=== PATIENT | female | born 1950 | race Caucasian/White ===

== ENCOUNTER 2020-05-16 07:10 | Outpatient (REF) | payer MEDICARE, SELFPAY ==
[2020-05-16 11:35] LABS: Hematocrit 43.7 % (37-47); Hemoglobin 14.7 g/dl (12.0-16.0); Mean Corpuscular HGB Conc 33.6 g/dl (31.0-35.0); Mean Corpuscular Hemoglobin 32.5 pg (27.0-33.0); Mean Corpuscular Volume 96.5 fL (80-98); Mean Platelet Volume 11.5 fL (9.4-12.3); Platelet Count 214 X10*3/uL (160-400); Red Blood Count 4.53 X10*6/uL (4.20-5.50); Red Cell Distribution Width 12.9 % (11.0-16.0); White Blood Count 4.5 X10*3/uL (4.8-10.8)
[2020-05-16 11:56] LABS: Estimated Average Glucose 108 mg/dL; Hemoglobin A1c % 5.4 %
[2020-05-16 12:10] LABS: ~HepC Num1 0.08 S/CO (0.00-0.79); ~Hepatitis C Antibody Nonreactive (Nonreactive)
[2020-05-16 12:18] LABS: Alanine Aminotransferase 13 U/L (0-31); Albumin Level 4.6 g/dL (3.5-5.0); Alkaline Phosphatase 49 U/L (39-117); Anion Gap 12 (12-20); Aspartate Amino Transferase 20 U/L (5-31); Bilirubin Total 0.7 mg/dL (0.0-1.0); Blood Urea Nitrogen 16 mg/dL (9-16); Calcium 9.4 mg/dL (8.4-10.2); Carbon Dioxide 28 mmol/L (22-29); Chloride 106 mmol/L (96-108); Cholesterol 206 mg/dL; Estimated Glomerular Filt Rate > 60; Glucose Fasting 97 mg/dL (60-99); HDL Cholesterol 79 mg/dL; LDL Cholesterol Calculated 117 mg/dl; Potassium 4.7 mmol/l (3.3-5.1); Sodium 141 mmol/L (135-145); Total Protein 6.9 g/dL (6.5-8.0); Triglycerides 51 mg/dL
== END 2020-05-16 07:11 | disposition home or self-care (01) ==
LOC: HO.HMGCLDS 07:10
PROVIDERS: PCP Internal Medicine; Visit Provider Internal Medicine
DX: I48.0 Paroxysmal atrial fibrillation (principal); R73.01 Impaired fasting glucose; E78.00 Pure hypercholesterolemia, unspecified; Z11.59 Encounter for screening for other viral diseases
CPT/HCPCS: 36415; 80053; 80061; 83036; 85027; 86803

== ENCOUNTER → 2020-05-19 15:16 | Outpatient (BNVA) | payer MEDICARE, SELFPAY | PROVIDERS: PCP Internal Medicine; Referring Provider Internal Medicine; Visit Provider Internal Medicine Cardiovascular Disease | DX: I48.92 Unspecified atrial flutter (principal); Z79.01 Long term (current) use of anticoagulants | CPT/HCPCS: 99214 ==

== ENCOUNTER → 2020-11-21 13:33 | Outpatient (BNVA) | payer MEDICARE, SELFPAY | PROVIDERS: PCP Internal Medicine; Visit Provider Internal Medicine Cardiovascular Disease | DX: I48.92 Unspecified atrial flutter (principal) | CPT/HCPCS: 93005; 99212 ==

== ENCOUNTER → 2020-12-01 08:51 | Outpatient (REF) | payer MEDICARE, SELFPAY ==
--- NOTE | 2020-12-01 11:00 | ECG_ITS ---
Hook-up date: 2020-12-01 09:03:00 Duration: 47:59:00 Test Indications: UNSPECIFIED ATRIAL FLUTTER Medications: [id number] QRS complexes 65 Ventricular ectopics which represent <1 % of total QRS comp. 624 Supraventricular ectopics which represent <1 % of total QRS comp. * Paced QRS complexs which represent % of total QRS comp. VENTRICULAR ECTOPY 63 Isolated 0 Bigeminal Cycles 1 Couplets 0 Runs 0 Beats in Runs * Beats LONGEST at * BPM at :: -- * Beats FASTEST at * BPM at :: -- SUPRAVENTRICULAR ECTOPY 366 Isolated 96 Couplets 12 Runs 66 Beats in Runs 20 Beats LONGEST at 123 BPM at 07:11:31 2020-12-02 3 Beats FASTEST at 182 BPM at 11:24:26 2020-12-02 HEART RATES 48 MIN at 05:37:55 2020-12-02 70 AVG 119 MAX at 20:45:45 2020-12-02 LONGEST RR 0.9040 secs at 22:27:25 2020-12-02 S-T LEVELS Channel 1 - 128 mm at 09:03:00 2020-12-01 - 128 mm at 09:03:00 2020-12-01 Channel 2 - 128 mm at 09:03:00 2020-12-01 - 128 mm at 09:03:00 2020-12-01 Channel 3 - 128 mm at 02:82:21 -- - 128 mm at 02:82:21 Underlying rhythm is sinus; Average ventricular rate 70/min; range 48-119/min; Occasional supraventricular ectopy; isolated beats and some brief runs, longest 20 beats at 123/min; Rare PVCs; Symptoms in diary include flutter, twinge in left breast, dizzy, palpitations. Atleast flutter/palpitations could be from PACs, but other symptoms are non-specific. Referred By: Albert Mae Overread By: INGRID CHEN
== END ==
LOC: HO.CARD 08:51
PROVIDERS: PCP Internal Medicine; Visit Provider Internal Medicine Cardiovascular Disease
DX: I48.92 Unspecified atrial flutter (principal)
CPT/HCPCS: 93226

== ENCOUNTER → 2020-12-01 10:58 | Outpatient (REF) | payer MEDICARE, SELFPAY | LOC: HO.CARD 10:58 | PROVIDERS: Visit Provider Internal Medicine Cardiovascular Disease | DX: Z13.89 Encounter for screening for other disorder (principal) ==

== ENCOUNTER → 2021-01-30 13:37 | Outpatient (BNVA) | payer MEDICARE, SELFPAY | PROVIDERS: PCP Internal Medicine; Referring Provider Internal Medicine; Visit Provider Internal Medicine Cardiovascular Disease | DX: I48.92 Unspecified atrial flutter (principal) | CPT/HCPCS: 93005; 99212 ==

== ENCOUNTER → 2021-07-31 13:10 | Outpatient (BNVA) | payer MEDICARE, SELFPAY | PROVIDERS: PCP Internal Medicine; Referring Provider Internal Medicine; Visit Provider Internal Medicine Cardiovascular Disease | DX: I48.92 Unspecified atrial flutter (principal) | CPT/HCPCS: 99212 ==

== ENCOUNTER → 2022-04-30 14:22 | Outpatient (BNVA) | payer MEDICARE, SELFPAY | PROVIDERS: PCP Internal Medicine; Referring Provider Internal Medicine; Visit Provider Internal Medicine Cardiovascular Disease | DX: I48.92 Unspecified atrial flutter (principal); R42 Dizziness and giddiness | CPT/HCPCS: 93005; 99212 ==

== ENCOUNTER → 2022-11-07 13:22 | Outpatient (BNVA) | payer MEDICARE, SELFPAY | PROVIDERS: PCP Internal Medicine; Referring Provider Internal Medicine; Visit Provider Internal Medicine Cardiovascular Disease | DX: I48.92 Unspecified atrial flutter (principal); I45.19 Other right bundle-branch block; I10 Essential (primary) hypertension; Z79.02 Long term (current) use of antithrombotics/antiplatelets | CPT/HCPCS: 93005; 99212 ==

== ENCOUNTER 2023-04-21 07:28 | Emergency (ER) | payer MEDICARE, SELFPAY ==
[2023-04-21] VITALS (16 sets, daily range): BP systolic 92–155; BP diastolic 57–104; PULSE 57–160; RESP 14–25; TEMP 36.6; O2SAT 94–99; BMI 20.1
--- NOTE | 2023-04-21 | ECG_ITS ---
Test Reason : cardioverted Blood Pressure : / mmHG Vent. Rate : 059 BPM Atrial Rate : 059 BPM P-R Int : 196 ms QRS Dur : 104 ms QT Int : 438 ms P-R-T Axes : -05 024 059 degrees QTc Int : 433 ms Sinus bradycardia with Premature supraventricular complexes Low voltage QRS Incomplete right bundle branch block Cannot rule out Anterior infarct (cited on or before 02-MAY-2020) Abnormal ECG When compared with ECG of 21-APR-2023 07:37, Sinus rhythm has replaced Atrial fibrillation Vent. rate has decreased BY [address] no longer depressed in Inferior leads Nonspecific T wave abnormality no longer evident in Inferior leads Referred By: Reji Alba Electronically Signed By:GARRETT VALVERDE
--- NOTE | 2023-04-21 07:43 | ECG_ITS ---
Test Reason : HEART PALP Blood Pressure : / mmHG Vent. Rate : 144 BPM Atrial Rate : 000 BPM P-R Int : 000 ms QRS Dur : 084 ms QT Int : 290 ms P-R-T Axes : 000 071 -09 degrees QTc Int : 449 ms Atrial fibrillation with rapid ventricular response Low voltage QRS Cannot rule out Anterior infarct (cited on or before 02-MAY-2020) Abnormal ECG When compared with ECG of 03-MAY-2020 01:52, Atrial fibrillation has replaced Sinus rhythm Vent. rate has increased BY [address] now depressed in Inferior leads Nonspecific T wave abnormality now evident in Inferior leads Referred By: Reji Alba Electronically Signed By:GARRETT VALVERDE
--- NOTE | 2023-04-21 07:46 | ED_ITS ---
HPI - Arrhythmia/Palpitations General Chief Complaint: Arrhythmia/Palpitations Stated Complaint: Afib? Time Seen by Provider: 04/21/23 07:35 Source: patient Mode of arrival: ambulatory Limitations: no limitations History of Present Illness HPI narrative: This is a very pleasant 72 years old patient presented to the emergency department complaining of palpitations since this morning. Patient has history of a flutter she is anticoagulated with apixaban. Denies any syncope any chest pain MD complaint: rapid heart beat Onset (ago): hour(s) (2) Duration: constant Severity: moderate Context: occurred during rest Arrhythmia history: other (A flutter) Associated symptoms: denies other symptoms Related Data Home Medications Medication Instructions Recorded Confirmed cholecalciferol (vitamin D3) 50 50 mcg PO DAILY 07/31/21 11/07/22 mcg (2,000 unit) capsule losartan 25 mg tablet 25 mg PO DAILY 11/07/22 11/07/22 Previous Rx's Medication Instructions Recorded apixaban 5 mg tablet 5 mg PO BID #180 tabs 02/05/22 diltiazem HCl 120 mg 120 mg PO DAILY #30 caps 04/21/23 capsule,extended release 24 hr (Cardizem CD) Allergies Allergy/AdvReac Type Severity Reaction Status Date / Time No Known Allergies* Allergy Unknown unknown Uncoded 04/21/23 07:38 Review of Systems 2 Constitutional: Constitutional: Reports no additional constitutional complaints ENT: Reports system reviewed and no additional complaints, except as documented PMFSH Past Medical History PMFSH Narrative: Atrial flutter Medical History Atrial flutter Surgical History No pertinent past surgical history Family History Family History Mother Lung cancer Father Aortic aneurysm Social History Social History Alcohol intake: current Alcohol intake frequency: 0-2 drinks per day Alcohol type: wine Patient Tobacco Use Status: Never used Tobacco Physical Exam 2 Vital Signs: Vital Signs: Last Vital Signs Temp 98 F 04/21/23 07:31 Pulse 72 04/21/23 12:43 Resp 18 04/21/23 12:43 BP 144/76 H 04/21/23 12:43 Pulse Ox 98 04/21/23 12:43 O2 Del Method Room Air 04/21/23 12:43 O2 Flow Rate 3 04/21/23 11:09 Oxygen Flow Rate 5 04/21/23 11:00 BMI result Body Mass Index 20.1 Const: Nutritional Appearance: average body habitus O rientation/consciousness: oriented to person Limitations: no limitations HEENT: Head: Yes normal to inspection Ears: hearing grossly normal bilaterally General nose exam: Normal external nose present Face and sinus: Yes normal facial exam Mouth: Normal oral and palatal mucosa present Neck: Neck: Yes normal visual inspection Chest: Chest palpation & inspection: normal inspection of the chest Resp: Effort & Inspection: normal respiratory effort Auscultation: clear to auscultation bilaterally Cardio: Jugular venous distension: no JVD Rate: regular rate Rhythm: r egular rhythm GI: Inspection: Yes normal to inspection Palpation (GI): Soft to palpation and not firm Skin: General skin exam: no rashes or lesions noted Rashes: no rashes T rauma: no lacerations or abrasions Neuro: General: oriented to person Cranial nerves: Yes CN's II-XII intact bilaterally Extrem: General: Yes normal to inspection Right lower extremity: normal to inspection Left lower extremity: normal to inspection Course Reevaluation(s) Reevaluation #1: cardiovereted to NSR I administered sedation ;products mechanical design engineer delivered the shock Time: 10:57 Reevaluation #2: Awake and alert no distress in sinus rhythm after cardioversion Time: 11:04 Medications Administered Discontinued Medications Generic Name Dose Route Start Last Admin Trade Name Sukhdeep PRN Reason Stop Dose Admin Adenosine 6 mg 04/21/23 07:50 04/21/23 08:02 Adenosine 6 Mg/2 Ml Vial IVPUSH 04/21/23 07:51 6 mg ONCE ONE Administration Diltiazem HCl 15 mg 04/21/23 07:49 04/21/23 08:05 Diltiazem Hcl 50 Mg/10 Ml Vial 0.25 mg/kg (15 mg) 04/21/23 07:50 15 mg IVPUSH Administration ONCE ONE Diltiazem HCl 125 mg/ Sodium 125 mls @ 0 mls/hr 04/21/23 08:00 04/21/23 08:44 Chloride IVCONT 15 mg/hr .Q0M GISELLE 15 mls/hr Titration Protocol Per Protocol Metoprolol Tartrate 5 mg 04/21/23 09:51 04/21/23 09:58 Metoprolol Tartrate 5 Mg/5 Ml Vial IVPUSH 04/21/23 09:52 5 mg ONCE ONE Administration Propofol 100 mg 04/21/23 10:39 04/21/23 10:47 Propofol 200 Mg/20 Ml Vial IVPUSH 04/21/23 10:40 100 mg ONCE ONE Administration Propofol 60 mg 04/21/23 11:08 04/21/23 10:50 Propofol 200 Mg/20 Ml Vial IVPUSH 04/21/23 11:09 60 mg ONCE ONE Administration Medical Decision Making Medical Decision Making [facility] Narrative: Patient presented with the palpitation found to be tachycardic in the ED. will try rate control Differential Diagnosis Differential Diagnoses: The differential diagnosis associated with the presentation includes Rapid flutter/SVT Admission/Observation Consideration of admission/observation: Escalation of care including admission/observation considered Consult Healthcare Provider Management of the patient was discussed with: Manager Floor (products mechanical design engineer Dr Bailey) Lab Data [facility] Lab Attestation statement: I reviewed the patient's lab results. 04/21/23 07:51 04/21/23 07:51 Labs: Lab Results 04/21/23 Range/Units 07:51 WBC 8.1 (4.8-10.8) X10*3/uL RBC 4.29 (4.20-5.50) X10*6/uL Hgb 14.0 (12.0-16.0) g/dl Hct 40.8 (37.0-47.0) % MCV 95.1 (80.0-98.0) fL MCH 32.6 (27.0-33.0) pg MCHC 34.3 (31.0-35.0) g/dl RDW 13.6 (11.0-16.0) % Plt Count 154 L (160-400) X10*3/uL MPV 10.8 (9.4-12.3) fL Immature Gran % (Auto) 0.4 (0.0-0.4) % Neut % (Auto) 71.3 (45-73) % Lymph % (Auto) 21.5 (20-40) % [place] % (Auto) 4.2 (2-11) % Eos % (Auto) 1.7 (0-4) % Baso % (Auto) 0.9 (0-2) % Lymph # (Auto) 1.7 (1.2-4.9) X10*3/uL [place] # (Auto) 0.3 (0.1-1.2) X10*3/uL Eos # (Auto) 0.1 (0.0-0.4) X10*3/uL Baso # (Auto) 0.1 (0.0-0.2) X10*3/uL Abs Immat Gran (auto) 0.03 (0.00-0.03) X10*3/uL Absolute Neuts (auto) 5.8 (2.0-8.3) x10*3/uL Absolute Nucleated RBC 0.000 (0.0-0.012) X10*3/uL Nucleated RBC % (auto) 0.0 (0.0-0.2) /100WBC Sodium 140 (135-145) mmol/L Potassium 3.7 (3.3-5.1) mmol/L Chloride 108 (96-108) mmol/L Carbon Dioxide 24 (22-29) mmol/L Anion Gap 12 (12-20) BUN 13 (9-16) mg/dL Creatinine 0.67 (0.5-1.4) mg/dL Estim Creat Clear Calc 74.0 Estimated GFR > 60 Random Glucose 104 (60-115) mg/dL Calcium 9.3 (8.4-10.2) mg/dL Total Bilirubin 0.4 (0.0-1.0) mg/dL AST 35 H (5-31) U/L ALT 22 (0-31) U/L Alkaline Phosphatase 54 (39-117) U/L Troponin I High Sens 2.8 (<3.5-17.0) ng/L Total Protein 6.6 (6.5-8.0) g/dL Albumin 4.2 (3.5-5.0) g/dL Independent Interpretation I performed an independent interpretation of an: EKG Interpretation: Narrow complex tachycardia question is SVT [place] rapid flutter External Record Review External record reviewed: Inpatient record Procedures Procedural Sedation Indication: other (cardioversion) ASA Class: I Mallampati Class: I Preparation: patient monitor applied, pulse oximeter, capnometry used, supplemental O2 applied, suction/airway equipment at bedside and IV secured IV Propofol dose (mg): 160 Patient Tolerated Procedure: well Complications: none Critical Care Time Critical Care Time Critical Care Time: Yes Total Critical Care Time: 90 Attestation: IV cardizem/IV cardizem drip ,IV lopressor,procedural sedation Discharge Plan Discharge Clinical Impression: Atrial flutter with rapid ventricular response Patient Disposition: Home, Self-Care Instructions: Atrial Flutter (ED) Prescriptions: New diltiazem HCl [Cardizem CD] 120 mg capsule,extended release 24hr 120 mg PO DAILY Qty: 30 0RF No Action apixaban 5 mg tablet 5 mg PO BID Qty: 180 3RF cholecalciferol (vitamin D3) 50 mcg (2,000 unit) capsule 50 mcg PO DAILY losartan 25 mg tablet 25 mg PO DAILY Referrals: Darian Bailey MD [Physician] - 3 days Interventions: ED Discharge Assessment Last Done: 04/21/23 12:44 Discharge Date/Time: 04/21/23 12:44
[2023-04-21 07:59] LABS: MANUAL DIFF FLAG NO
[2023-04-21] MEDS: Adenosine 6 MG/2 ML VIAL IVPUSH (08:02)
[2023-04-21 08:03] LABS: Basophils Absolute Auto 0.1 X10*3/uL (0.0-0.2); Basophils Percent Auto 0.9 % (0-2); Eosinophils Absolute Auto 0.1 X10*3/uL (0.0-0.4); Eosinophils Percent Auto 1.7 % (0-4); Hematocrit 40.8 % (37.0-47.0); Imm Gran Abs Auto 0.03 X10*3/uL (0.00-0.03); Imm Gran Pct Auto 0.4 % (0.0-0.4); Lymphocytes Absolute Auto 1.7 X10*3/uL (1.2-4.9); Lymphocytes Percent Auto 21.5 % (20-40); Mean Corpuscular HGB Conc 34.3 g/dl (31.0-35.0); Mean Corpuscular Hemoglobin 32.6 pg (27.0-33.0); Mean Corpuscular Volume 95.1 fL (80.0-98.0); Mean Platelet Volume 10.8 fL (9.4-12.3); Monocytes Absolute Auto 0.3 X10*3/uL (0.1-1.2); Monocytes Percent Auto 4.2 % (2-11); Neutrophils Absolute Auto 5.8 x10*3/uL (2.0-8.3); Neutrophils Percent Auto 71.3 % (45-73); Platelet Count 154 X10*3/uL (160-400); Red Blood Count 4.29 X10*6/uL (4.20-5.50); Red Cell Distribution Width 13.6 % (11.0-16.0); White Blood Count 8.1 X10*3/uL (4.8-10.8)
[2023-04-21] MEDS: dilTIAZem HCL 50 MG/10 ML VIAL 15 MG IVPUSH (08:05)
[2023-04-21] MEDS: dilTIAZem HCL 125 MG in 0.9 % Sodium Chloride 100 ML 10 MG IVCONT (08:11)
[2023-04-21 08:25] LABS: Alanine Aminotransferase 22 U/L (0-31); Albumin Level 4.2 g/dL (3.5-5.0); Alkaline Phosphatase 54 U/L (39-117); Anion Gap 12 (12-20); Aspartate Amino Transferase 35 U/L (5-31); Bilirubin Total 0.4 mg/dL (0.0-1.0); Blood Urea Nitrogen 13 mg/dL (9-16); Calcium 9.3 mg/dL (8.4-10.2); Carbon Dioxide 24 mmol/L (22-29); Chloride 108 mmol/L (96-108); Estimated Glomerular Filt Rate > 60; Glucose Random 104 mg/dL (60-115); Potassium 3.7 mmol/L (3.3-5.1); Sodium 140 mmol/L (135-145); Total Protein 6.6 g/dL (6.5-8.0)
[2023-04-21 08:33] LABS: Troponin-I High Sensitivity 2.8 ng/L (<3.5-17.0)
[2023-04-21] MEDS: Metoprolol Tartrate 5 MG/5 ML VIAL IVPUSH (09:58)
--- NOTE | 2023-04-21 10:13 | PC.NURSE ---
0745 - pt arrival states feels like shes in afib again; onset approx 0500 upon awaking. pt axox4; vss; rapid afib on monitor 140-150 bpm; ekg obtained iv established labs drawn. pt denies n/v/cp/sob/dizziness. 0800- 144 bpm 0802 - 6mg adenosine administered with Dr. Alba at bedside; zoll at bedside; no improvement in heart rate. pt tolerated well. 0805- 15mg diltiazem administered with some improvement in heart rate; 111 bpm. vss. 0811- diltiazem drip started at 10 mg/hr per order. vss as documented. 0845- diltiazem drip titrated to 15mg/hr; 151 bpm 131/85. second iv established. 0958 - metoprolol administered per order as no improvement in heart rate; 138 bpm 136/79 1010 - rapid afib/aflutter on monitor 95-102 bpm.
--- NOTE | 2023-04-21 10:46 | PC.NURSE ---
Dr. Alba and Textile Science Technician at bedside. Respiratory at bedside. VSS. rapid afib on montior 144 bpm. pacer pads on; pt on zoll. 1047- 40mg propofol 1048 - 20mg propofol 1048 - 20mg propofol 1049 - 20mg propofol 1050- 20mg propofol 1051- 20 mg propofol 1053- 20mg propofol 1053- 1L normal saline infusing. 1053 charged; shocked 200J. 1054- nsr on monitor 65 bpm.
[2023-04-21] MEDS: propofoL 200 MG/20 ML VIAL 100 MG IVPUSH (10:47)
[2023-04-21] MEDS: propofoL 200 MG/20 ML VIAL 60 MG IVPUSH (10:50)
--- NOTE | 2023-04-21 11:11 | PC.NURSE ---
pt axox4, vss, respirations even and unlabored, pt reports still feeling sleepy but able to awaken on own; able to recall events prior to sedation; asking appropriate questions. sats 97% on 2L NC.
--- NOTE | 2023-04-21 11:42 | HO.CARDIVERS ---
Cardioversion Procedure Note Cardioversion Date of Procedure: Today Ordering Provider: Myself Performing Provider: Myself Indication for Procedure: Symptomatic recurrent persistent atrial flutter Pre-Op Diagnosis: Same Post-Op Diagnosis: Normal sinus rhythm Performed with Transesophageal Echo: No Consent: Verbal and Written consent was obtained from the patient before starting the procedure and after confirming the use of oral anticoagulation. The patient was made aware of the risk of synchronized cardioversion including alternatives and benefits Procedure: After consent obtained, cardioversion pads were attached anteroposterior configuration and the patient was sedated by the ED team. Once adequate sedation achieved, patient was delivered 200 joules of biphasic synchronized energy in anteroposterior configuration Complications: None Impression: Normal sinus rhythm Recommendations: 1. Twelve lead EKG 2. Start Cardizem CD 1 20 mg daily 3. Continue full oral anticoagulation with Eliquis 4. Outpatient follow-up after Holter monitor
--- NOTE | 2023-04-21 11:47 | P.CONCA_ITS ---
History of Present Illness History of Present Illness Date of Service: 04/21/23 Requesting physician: Reji Alba Consult reason: other (Recurrent atrial flutter) Chief complaint: Afib? Narrative: I was consulted to see Jasmin in cardiology consultation today for recurrent symptomatic atrial flutter in the emergency room. She is a pleasant 72-year-old female with prior history of paroxysmal atrial fibrillation follows with . The 1st episode was about 2 years ago when she was admitted to the hospital and converted with rate control with IV medication. Since then she has been on Eliquis 5 mg b.i.d.. She was initially started metoprolol but did not tolerated with symptoms of dizziness and not feeling well. Subsequently treated with losartan which was also stopped due to lightheadedness. She does carry a prior diagnosis of hypertension but her blood pressures been well controlled. She was in her usual state of health yesterday when she went to bed. She woke up this morning at 05:00 o'clock to the go to the bathroom and developed rapid palpitations. She came to the emergency room and was noted in rapid heart rate, initially given additional seen by ED. Noted to be in atrial flutter with rapid ventricular response. Subsequently started on Cardizem drip and remain in atrial flutter. I symptoms have improved. Discussed about treatment options and subsequently we went on to perform synchronized cardioversion Review of Systems 2 Constitutional: Constitutional: Reports no additional constitutional complaints Eyes: Eyes: Reports no additional eye complaints Cardiovascular: Cardiovascular: Denies chest pain, Reports lightheadedness, Denies Loss of Consciousness, Reports palpitations and Denies dyspnea Respiratory: Respiratory: Denies no additional respiratory complaints and Denies dyspnea Genitourinary: Genitourinary: Reports no additional female genitourinary complaints Musculoskeletal: Musculoskeletal: Reports no additional musculoskeletal complaints Integumentary/Breasts: Skin/Breast: Reports system reviewed and no additional complaints, except as docu Psychiatric: Psychiatric: Reports no additional psychiatric complaints Endocrine: Endocrine: Reports palpitations Hematologic/Lymphatic: Hematologic/Lymphatic: Reports no additional hematologic/lymphatic complaints Allergic/Immunologic: Allergic/Immunologic: Reports no additional allergic/immunologic complaints PMFSH Past Medical History Medical History Atrial flutter Family History Family History Mother Lung cancer Father Aortic aneurysm Surgical History Surgical History No pertinent past surgical history Social History Social History Alcohol intake: current Alcohol intake frequency: 0-2 drinks per day Alcohol type: wine Patient Tobacco Use Status: Never used Tobacco Smoked in Last 30 Days: No Use of substances other than those prescribed or required for medical reasons: No Advance Directives: No Meds Allergies Allergy/AdvReac Type Severity Reaction Status Date / Time No Known Allergies* Allergy Unknown unknown Uncoded 04/21/23 07:38 Active Medications: Current Medications Diltiazem HCl 125 mg/ Sodium (Chloride) 125 mls @ 0 mls/hr IVCONT .Q0M GISELLE; Protocol Last Titration: 04/21/23 08:44 Dose: 15 mg/hr, 15 mls/hr Home Medications Medication Instructions Recorded Confirmed Last Taken Type cholecalciferol (vitamin D3) 50 50 mcg PO DAILY 07/31/21 11/07/22 Unknown History mcg (2,000 unit) capsule losartan 25 mg tablet 25 mg PO DAILY 11/07/22 11/07/22 Unknown History Physical Exam 2 Vital Signs: Vital Signs: Last Vital Signs Temp 98 F 04/21/23 07:31 Pulse 66 04/21/23 11:25 Resp 14 04/21/23 11:25 BP 114/70 04/21/23 11:25 Pulse Ox 98 04/21/23 11:25 O2 Del Method Room Air 04/21/23 11:25 O2 Flow Rate 3 04/21/23 11:09 Oxygen Flow Rate 5 04/21/23 11:00 BMI result Body Mass Index 20.1 Const: General: cooperative, comfortable, no acute distress, alert, awake, Physically active and anxious Nutritional Appearance: thin O rientation/consciousness: patient oriented x3 Limitations: no limitations HEENT: Head: Yes normocephalic and Yes atraumatic Neck: Neck: Yes trachea midline, Yes supple and Yes no JVD Resp: Effort & Inspection: normal respiratory effort Auscultation: clear to auscultation bilaterally Cardio: Rate: regular rate Rhythm: regular rhythm Heart sounds: S1 normal heart sound present, S2 normal heart sound present, no click, no gallops, no murmurs and no rubs GI: Auscultation: normal bowel sounds Skin: General skin exam: no rashes or lesions noted Neuro: General: patient oriented x3 and no focal motor deficits Extrem: General: Yes no clubbing, cyanosis or edema Objective Labs and Meds 04/21/23 07:51 04/21/23 07:51 Lab results: Laboratory Results - last 24 hr 04/21/23 07:51 WBC 8.1 RBC 4.29 Hgb 14.0 Hct 40.8 MCV 95.1 MCH 32.6 MCHC 34.3 RDW 13.6 Plt Count 154 L MPV 10.8 Immature Gran % (Auto) 0.4 Neut % (Auto) 71.3 Lymph % (Auto) 21.5 [place] % (Auto) 4.2 Eos % (Auto) 1.7 Baso % (Auto) 0.9 Lymph # (Auto) 1.7 [place] # (Auto) 0.3 Eos # (Auto) 0.1 Baso # (Auto) 0.1 Abs Immat Gran (auto) 0.03 Absolute Neuts (auto) 5.8 Absolute Nucleated RBC 0.000 Nucleated RBC % (auto) 0.0 Sodium 140 Potassium 3.7 Chloride 108 Carbon Dioxide 24 Anion Gap 12 BUN 13 Creatinine 0.67 Estim Creat Clear Calc 74.0 Estimated GFR > 60 Random Glucose 104 Calcium 9.3 Total Bilirubin 0.4 AST 35 H ALT 22 Alkaline Phosphatase 54 Troponin I High Sens 2.8 Total Protein 6.6 Albumin 4.2 Assessment and Plan (1) Atrial flutter with rapid ventricular response: Status: Acute Recurrent symptomatic atrial flutter with rapid ventricular response in this elderly woman. Converted with synchronized cardioversion. Will start on Cardizem CD 120 mg daily and discharged home. Continue Eliquis for oral anticoagulation. Avoidance of stimulants such as caffeine alcohol was discussed. Follow up in the office after Holter monitor. Will repeat echocardiogram in near future as well to assess any changes in her structural status. Advised to monitor blood pressure at home and maintain a log. We discussed treatment options if she has recurrent atrial flutter fibrillation including with antiarrhythmic drug and ablation. She understood and agree. Will follow up as outpatient. Thank you for allowing us to partake in her care Time Spent With Patient Time: Total time managing care of this patient today ____ minutes. Procedures Date of Service Date of Service: 04/21/23
== END 2023-04-21 12:44 | disposition home or self-care (01) ==
PROVIDERS: Emergency Provider Emergency Medicine; PCP Internal Medicine
DX: I48.92 Unspecified atrial flutter (principal); I49.9 Cardiac arrhythmia, unspecified; Z79.01 Long term (current) use of anticoagulants; Z79.899 Other long term (current) drug therapy
CPT/HCPCS: 36415; 80053; 84484; 85025; 93005; 96365; 96375; 96376; 99284; 99285; J0153

== ENCOUNTER → 2023-04-21 07:55 | Outpatient (BNV) | payer MEDICARE, SELFPAY | PROVIDERS: Emergency Provider Emergency Medicine; PCP Internal Medicine; Visit Provider Internal Medicine Cardiovascular Disease | DX: I48.92 Unspecified atrial flutter (principal) | CPT/HCPCS: 92960; 99284 ==

== ENCOUNTER 2023-05-06 13:02 | Outpatient (AMB) | payer MEDICARE, SELFPAY ==
--- NOTE | 2023-05-06 13:04 | MHC.OFFVIS ---
Intake Vital Signs 05/06/23 13:05 Height 5 ft 8 in Weight 130 lb 1.164 oz BMI 19.8 BP 142/108 H Blood Pressure Location Lt brachial Position Sitting Pulse 85 Intake Visit Reasons: 6 mth f/up/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 She was seen previously for atrial flutter. She has been on Eliquis. Denying any symptoms. Previously was noted to have high BP but was under a lot of stress so medications were not added. It appears on follow up with her PCP her BP was still high and she was started on Losartan which she has been tolerating well. No bleeding concerns. 05/06/23: She returns for follow-up appeared she did well for 3 years and recently went to emergency department with palpitations and was in atrial flutter again. She was cardioverted and discharged home on diltiazem 120 mg twice a day. She was already taking apixaban 5 mg twice a day. She returns for follow-up and has been doing okay. No further palpitations. She is drinking 2 glasses of wine per day. We discussed about alcohol intake and risk of arrhythmia. [facility] Medical History Atrial flutter Surgical History No pertinent past surgical history Family History Mother Lung cancer Father Aortic aneurysm Social History Alcohol intake: current Alcohol intake frequency: 0-2 drinks per day Alcohol type: wine Patient Tobacco Use Status: Never used Tobacco Review of Systems Const Denies weakness ENT Denies dizziness Card Denies chest pain, Denies chest pain with activity, Denies syncope, Denies rapid heart rate, Denies pedal edema, Denies edema, Denies leg edema, Denies lightheadedness, Denies palpitations, Denies dyspnea, Denies dyspnea on exertion and Denies orthopnea Resp Denies cough, Denies dyspnea and Denies dyspnea on exertion GI Denies hematochezia and Denies change in stool character Musc Denies abnormal gait, Denies muscle cramps, Denies muscle weakness, Denies numbness, Denies radiating pain into limb and Denies tingling Neuro Denies abnormal gait, Denies dizziness, Denies syncope, Denies numbness, Denies tingling and Denies weakness Endo Denies palpitations Physical Exam Vital Signs: Last Vital Signs Pulse 85 05/06/23 13:05 BP 142/108 H 05/06/23 13:05 BMI result Body Mass Index 19.8 GENERAL APPEARANCE: in no acute distress, pleasant. NECK: no carotid bruit, no jugular venous distention. SKIN: no suspicious lesions, warm and dry. HEART: no murmurs, regular rate and rhythm. LUNGS: clear to auscultation bilaterally. ABDOMEN: soft, nontender. EXTREMITIES: no edema. PERIPHERAL PULSES: equal. NEUROLOGIC: No gross deficits, AAO X 3 Assessment & Plan Assessment & Plan (1) Essential hypertension: Code(s): I10 - Essential (primary) hypertension (2) Atrial flutter: Code(s): I48.92 - Unspecified atrial flutter Plan Pleasant 72-year-old female who is here for follow-up. She has history of atrial flutter and was stable for 3 years till in April 21 when she presented to emergency department with atrial flutter. She was cardioverted and discharged back home. She has been taking diltiazem 120 mg twice a day and apixaban 5 mg twice a day. She is also on buspirone and there is apparently an interaction between diltiazem and buspirone. I have advised her to discuss her primary care physician and may be the dose of buspirone should be decreased. We discussed about ablation versus antiarrhythmic therapy versus watchful waiting. She has decided not to pursue any procedures or try antiarrhythmics at this point. Will leave her on diltiazem and monitor closely. If she has recurrent episodes and will discuss about starting antiarrhythmic therapy versus atrial flutter ablation. Blood pressure is elevated in the clinic but her home blood pressure readings are fine. She is saying that she gets very anxious when she comes to them office visits. Currently continue the same dose of diltiazem. Thank you for allowing me to participate in the care of your patient. Please feel free to contact me if you have any questions. Coding Level of Care Code Est Pt Level 4 (91065) Diagnoses Essential hypertension I10 Atrial flutter I48.92
[2023-05-06 13:05] VITALS: BP 142/108; PULSE 85; BMI 19.8
== END 2023-05-06 13:38 | disposition home or self-care (01) ==
PROVIDERS: PCP Internal Medicine; Visit Provider Internal Medicine Cardiovascular Disease
DX: I10 Essential (primary) hypertension (principal); I48.92 Unspecified atrial flutter
CPT/HCPCS: 99214

== ENCOUNTER → 2023-05-06 13:02 | Outpatient (BNVA) | payer MEDICARE, SELFPAY | PROVIDERS: PCP Internal Medicine; Visit Provider Internal Medicine Cardiovascular Disease | DX: I48.92 Unspecified atrial flutter (principal); I10 Essential (primary) hypertension | CPT/HCPCS: 99212 ==

== ENCOUNTER → 2023-05-17 08:54 | Outpatient (REF) | payer MEDICARE, SELFPAY ==
--- NOTE | 2023-05-17 08:58 | HM_ITS ---
* Total monitoring time 3 days. * Underlying rhythm is sinus. Average ventricular rate 68/min. Range 48 to 114/min. * Occasional supraventricular ectopy with low burden. Very brief runs noted. * Occasional ventricular ectopy with a burden of 0.9%. Rare couplets and bigeminy. No significant runs. * No significant pauses or AV blocks. * Palpitations and lightheadedness in diary correlates with sinus rhythm, PACs. MTDD
== END ==
LOC: HO.CARD 08:54
PROVIDERS: PCP Internal Medicine; Visit Provider Internal Medicine Cardiovascular Disease
DX: I10 Essential (primary) hypertension (principal); I48.92 Unspecified atrial flutter; R42 Dizziness and giddiness
CPT/HCPCS: 93242; 93306

== ENCOUNTER → 2023-05-17 08:58 | Outpatient (BNV) | payer MEDICARE, SELFPAY | PROVIDERS: PCP Internal Medicine; Visit Provider Internal Medicine | DX: I47.10 Supraventricular tachycardia, unspecified (principal) | CPT/HCPCS: 93244; 93306 ==

== ENCOUNTER 2023-08-19 08:35 | Outpatient (REF) | payer MEDICARE, SELFPAY ==
[2023-08-19 14:55] LABS: Vitamin B12 716 pg/mL (200-900)
== END 2023-08-19 08:36 | disposition home or self-care (01) ==
LOC: HO.LAB 08:35
PROVIDERS: PCP Nurse Practitioner Family; Visit Provider Nurse Practitioner Family
DX: I10 Essential (primary) hypertension (principal); R73.01 Impaired fasting glucose; G62.9 Polyneuropathy, unspecified
CPT/HCPCS: 36415; 80053; 80061; 82607; 83036; 85025

== ENCOUNTER 2023-09-10 08:18 | Outpatient (AMB) | payer MEDICARE, SELFPAY ==
--- NOTE | 2023-09-10 08:27 | A.OFFVIS_ITS ---
Intake Vital Signs 09/10/23 08:28 Height 5 ft 8 in Weight 133 lb 9.602 oz BMI 20.3 BP 120/72 Blood Pressure Location Lt brachial Position Sitting Pulse 65 Pulse Source Monitor Intake Visit Reasons: 4mnth f/up [employer] Required: No Allergies No Known Allergies* Allergy (Unknown, Uncoded 05/06/23 13:07) unknown Medication List - Last Reconciled 09/10/23 by CITLALLI Noonan apixaban 5 mg PO BID buspirone 5 mg PO BID cholecalciferol (vitamin D3) 50 mcg PO DAILY diltiazem HCl 120 mg PO DAILY HPI 4mnth f/up HPI Details Jasmin is a 72-year-old female past medical history of hypertension, atrial flutter requiring cardioversion 04/21/2023 then put on diltiazem, continued on Eliquis who recently had a Holter monitor and echocardiogram and now presents for follow-up. Today she reports that she has been feeling well since her last ER visit in April. She has not had any known recurrent atrial flutter. She denies any chest discomfort at rest or with activity. No heart palpitations, lightheadedness, presyncope, syncope. No shortness of breath, PND, orthopnea or edema. She reports good activity tolerance. She continues to drink 2 glasses of wine most days. She is taking meds as directed. No bleeding issues reported. [facility] Medical History Atrial flutter Surgical History No pertinent past surgical history Family History Mother Lung cancer Father Aortic aneurysm Social History Alcohol intake: current Alcohol intake frequency: 0-2 drinks per day Alcohol type: wine Patient Tobacco Use Status: Never used Tobacco Review of Systems Const All systems reviewed & are unremarkable except as noted in HPI and below ENT Denies dizziness Card Denies chest pain, Denies chest pain at rest, Denies chest pain with activity, Denies rapid heart rate, Denies pedal edema, Denies edema, Denies leg edema, Denies lightheadedness, Denies palpitations, Denies dyspnea, Denies dyspnea on exertion and Denies orthopnea Resp Denies cough, Denies dyspnea and Denies dyspnea on exertion GI Denies hematochezia and Denies change in stool character Musc Denies abnormal gait, Denies limited range of motion, Denies muscle cramps, Denies muscle weakness, Denies numbness, Denies radiating pain into limb, Denies stiffness and Denies tingling Neuro Denies abnormal gait, Denies dizziness, Denies numbness and Denies tingling Endo Denies palpitations Physical Exam Vital Signs: Last Vital Signs Pulse 65 09/10/23 08:28 BP 120/72 09/10/23 08:28 BMI result Body Mass Index 20.3 Const General: cooperative, healthy appearing, comfortable and no acute distress Orientation/consciousness: patient oriented x3 Neck Neck: Yes normal visual inspection and Yes no JVD Resp Effort & Inspection: normal respiratory effort Auscultation: clear to auscultation bilaterally, no rales, no rhonchi and no wheezes Cardio Jugular venous distension: no JVD Rate: regular rate Rhythm: regular rhythm Heart sounds: S1 normal heart sound present, S2 normal heart sound present, no gallops, no murmurs and no rubs Peripheral pulses: Peripheral pulses 2+ throughout Neuro General: patient oriented x3 Extrem General: Yes normal to inspection, No no pedal edema and No calf tenderness Psych Appearance: grossly normal Mental Status: mental status grossly normal Speech and movement: Normal speech and movement present Office Procedures EKG Details: Today, read by me, normal sinus rhythm, poor R-wave progression which could be related to body habitus, lead placement, can not exclude prior anterior infarct, rate 65, QTC 440 milliseconds [id number], Complete Assessment & Plan Assessment & Plan (1) Atrial flutter: Code(s): I48.92 - Unspecified atrial flutter Qualifiers: Atrial flutter type: unspecified Qualified Code(s): I48.92 - Unspecified atrial flutter Plan: History of atrial flutter. Had been suppressed for a few years then recently presented to [facility] emergency room with palpitations. She did undergo cardioversion at that time, 04/21/2023. She was put on diltiazem for heart rate control. She was continued on Eliquis 5 mg b.i.d.. Echocardiogram done 05/17/2023 showed EF 67%, mild anterior and posterior mitral valve thickening. Holter monitor done 05/17/2023 for 3 days showed sinus rhythm with average heart rate 68, heart rate range 48 to 114, occasional SVE and VE, palpitations correlated with sinus rhythm and PACs. Today she reports no recurrent heart palpitations. EKG done today showing normal sinus rhythm, low-voltage QRS, unchanged from prior EKG, rate 65. She continues to drink up to 2 glasses a wine daily. Alcohol use and its correlation with atrial fibrillation reviewed with her. Will have her continue on diltiazem CD 120 mg daily. Continue Eliquis 5 mg b.i.d.. Labs done 08/19/2023 showed creatinine 0.71. Emergency care for any known recurrent atrial fibrillation that is symptomatic. Cardiology follow-up in 6 months, sooner if needed. (2) Essential hypertension: Code(s): I10 - Essential (primary) hypertension Plan: Normal range at this time. Continue on current diltiazem. In the past had been on losartan and tells me that she got very lightheaded with it. Plan Time spent on chart review, documentation, interview and assessment Coding Level of Care Code Est Pt Level 3 (87048) Diagnoses Atrial flutter, unspecified type I48.92 Atrial flutter type: unspecified Essential hypertension I10 CPT Codes EKG - CPT: 30581-[id number], Complete ([id number]) Time Spent (min) 24
[2023-09-10 08:28] VITALS: BP 120/72; PULSE 65; BMI 20.3
== END 2023-09-10 08:59 | disposition home or self-care (01) ==
PROVIDERS: PCP Internal Medicine; Visit Provider Nurse Practitioner Family
DX: I48.92 Unspecified atrial flutter (principal); I10 Essential (primary) hypertension
CPT/HCPCS: 93010; 99213

== ENCOUNTER → 2023-09-10 08:18 | Outpatient (BNVA) | payer MEDICARE, SELFPAY | PROVIDERS: PCP Internal Medicine; Visit Provider Nurse Practitioner Family | DX: I48.92 Unspecified atrial flutter (principal); I10 Essential (primary) hypertension; Z79.01 Long term (current) use of anticoagulants; Z79.899 Other long term (current) drug therapy | CPT/HCPCS: 93005; 99212 ==

== ENCOUNTER 2024-01-24 07:58 | Outpatient (REF) | payer MEDICARE, SELFPAY ==
--- NOTE | ~2024-01-24 | MM_ITS ---
EXAMINATION: BONE DENSITOMETRY CLINICAL INDICATION: Osteopenia. COMPARISON: This is the patient's baseline examination. TECHNIQUE: Using a [employer] DXA System (software version: 13.1) manufactured by [employer], dual-energy x-ray absorptiometry was performed of the lumbar spine and left hip. The images are of good technical quality. Summary results are attached. FINDINGS: LEFT FEMUR, NECK: BMD 0.742 g/cm2, Z-score -0.3, T-score -2.1, osteopenia. LEFT FEMUR, TOTAL: BMD 0.723 g/cm2, Z-score -0.6, T-score -2.3, osteopenia. AP SPINE L1-L4: BMD 1.080 g/cm2, Z-score 1.0, T-score -0.8, normal. IDENTIFIED RISK FACTORS: Menopause, secondary osteoporosis (intestinal or bowel disease, not IBS). HISTORY OF FRACTURE: None listed. MEDICATIONS: Vitamin D. MM/XR DEXA axial skeleton IMPRESSION: 1. DIAGNOSIS: Osteopenia based on the lowest T-score value of -2.3 in the total femur applying World Health Organization criteria. 2. 10-YEAR FRACTURE RISK PREDICTION, FRAX: Major osteoporotic fracture (clinical spine, forearm, hip or shoulder) 11.5%. Hip fracture 2.7%. 3. Treatment Recommendations: NOF guidelines recommend consideration for treatment in postmenopausal women and men age 50 and older presenting with the following: -A hip or vertebral (clinical or morphometric) fracture. -T-score less than or equal to -2.5 at the femoral neck or spine after appropriate evaluation to exclude secondary causes. -Low bone mass at the hip or spine and a 10-year fracture probability by FRAX of greater than or equal to 3% for hip fracture or greater than or equal to 20% for major osteoporotic fracture based on the [place] adapted WHO algorithm. 4. Other Recommendations: All treatment decisions require clinical judgment and consideration of individual patient factors, including patient preferences, comorbidities, previous drug use, risk factors not captured in the FRAX model (e.g. frailty, falls, vitamin D deficiency, increased bone turnover, interval significant decline in bone density) and possible under or overestimation of fracture risk by FRAX. Additional medical evaluation for secondary cause of low bone mineral density may be appropriate. FUTURE SCAN RECOMMENDATION: People with diagnosed cases of osteoporosis or at high risk for fracture should have regular bone mineral density tests. For patients eligible for Medicare, routine testing is allowed once every 2 years. The testing frequency can be increased to one year for patients who have rapidly progressing disease, those who are receiving or discontinuing medical therapy to restore bone mass, or have additional risk factors.
== END 2024-01-24 07:59 | disposition home or self-care (01) ==
LOC: HO.MAMMO 07:58
PROVIDERS: PCP Internal Medicine; Visit Provider Internal Medicine
DX: Z13.820 Encounter for screening for osteoporosis (principal); M85.80 Other specified disorders of bone density and structure, unspecified site; Z78.0 Asymptomatic menopausal state
CPT/HCPCS: 77080

== ENCOUNTER 2024-02-02 07:34 | Inpatient (IN) | payer MEDICARE, SELFPAY ==
[2024-02-02] VITALS (15 sets, daily range): BP systolic 104–140; BP diastolic 64–99; PULSE 69–152; RESP 12–22; TEMP 36.6–36.7; O2SAT 94–98; BMI 21.3
--- NOTE | 2024-02-02 07:37 | ECG_ITS ---
Test Reason : A FIB Blood Pressure : / mmHG Vent. Rate : 155 BPM Atrial Rate : 000 BPM P-R Int : 000 ms QRS Dur : 078 ms QT Int : 286 ms P-R-T Axes : 000 094 055 degrees QTc Int : 459 ms Supraventricular tachycardia Rightward axis Pulmonary disease pattern Septal infarct (cited on or before 02-MAY-2020) Abnormal ECG When compared with ECG of 21-APR-2023 10:57, Premature supraventricular complexes are no longer Present Vent. rate has increased BY 96 BPM Incomplete right bundle branch block is no longer Present Questionable change in initial forces of Anteroseptal leads Referred By: Generic ED Physician Electronically Signed By:RUDDY LOPEZ MD
[2024-02-02] MEDS: Adenosine 6 MG/2 ML VIAL IVPUSH (07:59)
[2024-02-02] MEDS: Adenosine 6 MG/2 ML VIAL 12 MG IVPUSH (07:59)
[2024-02-02] MEDS: 0.9 % Sodium Chloride 1,000 ML 999 ML IV ×2 (08:00→10:06)
--- NOTE | 2024-02-02 08:03 | ED_ITS ---
HPI - Arrhythmia/Palpitations General Chief Complaint: Arrhythmia/Palpitations Stated Complaint: AFIB? Time Seen by Provider: 02/02/24 07:49 Source: patient Mode of arrival: ambulatory Limitations: no limitations History of Present Illness ED Provider: DR. Juan HPI narrative: 73-year-old female history of paroxysmal atrial fibrillation on diltiazem 120 mg twice a day and Eliquis patient required cardioversion in the past, woke up this morning with feeling palpitation fast heart rate, no chest pain or shortness of breath feeling slightly dizzy. Patient in the emergency room found to be in rapid heart rate of 155, EKG is revealing SVT at 155, patient was given adenosine 6 mg followed by 12 mg with a transient effect the patient is back to rapid AFib. Patient declined any aggravating factor, attended a senior care constitution party last night admitted to drinking wine last night. Related Data Home Medications ?Medication ?Instructions ?Recorded ?Confirmed cholecalciferol (vitamin D3) 50 50 mcg PO DAILY 07/31/21 02/02/24 mcg (2,000 unit) capsule cyanocobalamin (vitamin B-12) 250 500 mcg PO DAILY 02/02/24 02/02/24 mcg tablet Previous Rx's ?Medication ?Instructions ?Recorded apixaban 5 mg tablet 5 mg PO BID #180 tabs 02/05/22 diltiazem HCl 120 mg 120 mg PO DAILY #90 caps 09/13/23 capsule,extended release 24 hr Allergies Allergy/AdvReac Type Severity Reaction Status Date / Time No Known Allergies Allergy Verified 02/02/24 07:39 Review of Systems 2 Review of Systems: All other systems are reviewed and are negative Constitutional: Reports as per HPI and Reports no additional constitutional complaints Eyes: Reports as per HPI and Reports no additional eye complaints Reports system reviewed and no additional complaints, except as documented Cardiovascular: Reports as per HPI and Reports no additional cardiovascular complaints Respiratory: Reports as per HPI and Reports no additional respiratory complaints Gastrointestinal: Reports as per HPI and Reports no additional gastrointestinal complaints Genitourinary: Reports no additional female genitourinary complaints Musculoskeletal: Reports no additional musculoskeletal complaints Skin/Breast: Reports system reviewed and no additional complaints, except as docu Psychiatric: Reports no additional psychiatric complaints Endocrine: Reports no additional endocrine complaints Hematologic/Lymphatic: Reports no additional hematologic/lymphatic complaints Allergic/Immunologic: Reports no additional allergic/immunologic complaints Reports system reviewed and no additional complaints, except as documented and Reports Abnormal speech present [facility] Past Medical History Medical History Atrial flutter Surgical History No pertinent past surgical history Family History Family History Mother Lung cancer Father Aortic aneurysm Social History Social History Alcohol intake: current Alcohol intake frequency: a few times a week Alcohol type: wine Patient Tobacco Use Status: Never used Tobacco Smoked in Last 30 Days: No Use of substances other than those prescribed or required for medical reasons: No Advance Directives: No Advance Directives Information Provided: Yes Nutrition Risks: No Nutritional Risk Physical Exam 2 Vital Signs: Vital Signs: Last Vital Signs Temp 98.0 F 02/02/24 07:39 Pulse 145 H 02/02/24 09:44 Resp 22 H 02/02/24 09:44 BP 117/91 H 02/02/24 09:44 Pulse Ox 96 02/02/24 09:44 O2 Del Method Room Air 02/02/24 09:44 BMI result Body Mass Index 21.3 Vital signs have been reviewed and appear to be correct. Blood pressure elevated. Heart rate elevated. Respiratory rate normal. Temperature normal. Oxygen saturation normal. Appearance: Alert. Oriented X3. No acute distress. Head: Normal external exam. Normocephalic. Atraumatic. No Blanchard signs noted. No raccoon eyes noted Eyes: PERRLA. EOMI. Conjunctiva and sclera normal. Eyelids normal. ENT: TM's Normal. Pharynx normal. Uvula midline. Moist mucous membranes. No trismus noted. No drooling noted. No muffled voice noted. Neck: Normal inspection. Neck supple. FROM. No adenopathy. Thyroid Normal. No meningeal signs. No neck mass noted. CVS: Rapid atrial fibrillation, Heart sound normal. No murmurs noted. Pulses normal throughout. Respiratory: No respiratory distress. Painless inspiration. Breath sounds normal. No wheezes/rales/rhonchi noted. Chest nontender. No accessory muscle usage noted or decreased air movement noted. Abdomen: Soft and nontender. Bowel sounds normal in all 4 quadrants. No distention noted. No organomegaly noted. No visible injury noted. Back: No CVA tenderness. Full range of motion noted. Skin: Skin warm and dry. Normal skin color. Normal skin turgor. No rashes/lesions/lacerations noted. Extremities: No lower extremity edema. Extremities exhibit normal range of motion. Extremities nontender. Neuro: Oriented X 3. Cranial nerve exam: II-XII are grossly intact No motor deficit. No sensory deficit. Reflexes normal. Course Reevaluation(s) Reevaluation #1: 73-year-old female history of paroxysmal AFib required cardioversion in the past came in with rapid atrial fibrillation versus SVT. 1. Initial adenosine 6 followed by 12 mg IV was unsuccessful to slow the heart rate. 2. Cardizem 20 mg IV able to control the rate. 3. Patient is already on anticoagulation. Will admit for further monitoring and cardiac evaluation. Time: 08:54 Reevaluation #2: Patient is back to rapid atrial fibrillation with RVR will repeat Cardizem IV and start the patient on Cardizem drip. Time: 09:57 Medications Administered Discontinued Medications Generic Name Dose Route Start Last Admin Trade Name Freq PRN Reason Stop Dose Admin Adenosine 6 mg 02/02/24 07:49 02/02/24 07:59 Adenosine 6 Mg/2 Ml Vial IVPUSH 02/02/24 07:50 6 mg STAT STA Administration Adenosine 12 mg 02/02/24 07:49 02/02/24 07:59 Adenosine 6 Mg/2 Ml Vial IVPUSH 02/02/24 07:50 12 mg ONCE ONE Administration Diltiazem HCl 20 mg 02/02/24 08:02 02/02/24 08:06 Diltiazem Hcl 50 Mg/10 Ml Vial IVPUSH 02/02/24 08:03 20 mg STAT STA Administration Sodium Chloride 1,000 mls @ 999 mls/hr 02/02/24 07:50 02/02/24 09:03 Ns IV 02/02/24 08:50 Infused .Q1H1M ONE Infusion Medical Decision Making Differential Diagnosis Differential Diagnoses: The differential diagnosis associated with the presentation includes (SVT, AFib, dysrhythmia, ventricular dysrhythmia, electrolyte derangement severe anemia.) Admission/Observation Consideration of admission/observation: Escalation of care including admission/observation considered Consult Healthcare Provider Management of the patient was discussed with: Hospitalist (Dr. choe) Lab Data MDM Lab Attestation statement: I reviewed the patient's lab results. 02/02/24 07:58 02/02/24 07:58 Labs: Lab Results 02/02/24 Range/Units 07:58 WBC 6.7 (4.8-10.8) X10*3/uL RBC 4.41 (4.20-5.50) X10*6/uL Hgb 14.4 (12.0-16.0) g/dl Hct 42.0 (37.0-47.0) % MCV 95.2 (80.0-98.0) fL MCH 32.7 (27.0-33.0) pg MCHC 34.3 (31.0-35.0) g/dl RDW 13.2 (11.0-16.0) % Plt Count 176 (160-400) X10*3/uL MPV 10.3 (9.4-12.3) fL Immature Gran % (Auto) 0.1 (0.0-0.4) % Neut % (Auto) 61.6 (45-73) % Lymph % (Auto) 30.6 (20-40) % [place] % (Auto) 5.4 (2-11) % Eos % (Auto) 1.3 (0-4) % Baso % (Auto) 1.0 (0-2) % Lymph # (Auto) 2.1 (1.2-4.9) X10*3/uL [place] # (Auto) 0.4 (0.1-1.2) X10*3/uL Eos # (Auto) 0.1 (0.0-0.4) X10*3/uL Baso # (Auto) 0.1 (0.0-0.2) X10*3/uL Abs Immat Gran (auto) 0.01 (0.00-0.03) X10*3/uL Absolute Neuts (auto) 4.1 (2.0-8.3) x10*3/uL Absolute Nucleated RBC 0.000 (0.0-0.012) X10*3/uL Nucleated RBC % (auto) 0.0 (0.0-0.2) /100WBC Hold Purple Top SEE NOTE Hold Blue Top SEE NOTE Sodium 140 (135-145) mmol/L Potassium 3.7 (3.3-5.1) mmol/L Chloride 107 (96-108) mmol/L Carbon Dioxide 21 L (22-29) mmol/L Anion Gap 16 (12-20) BUN 8 L (9-16) mg/dL Creatinine 0.73 (0.5-1.4) mg/dL Estim Creat Clear Calc 70.8 Estimated GFR > 60 Random Glucose 181 H (60-115) mg/dL Calcium 9.7 (8.4-10.2) mg/dL Total Bilirubin 0.8 (0.0-1.0) mg/dL AST 32 H (5-31) U/L ALT 21 (0-31) U/L Alkaline Phosphatase 51 (39-117) U/L Troponin I High Sens 4.7 D (<3.5-17.0) ng/L Total Protein 6.9 (6.5-8.0) g/dL Albumin 4.4 (3.5-5.0) g/dL Independent Interpretation I performed an independent interpretation of an: EKG (SVT at 155 b.p.m.) Radiology Impression Discussion of test interpretation with radiology: I have reviewed the radiologist's reading. Critical Care Time Critical Care Time Critical Care Time: Yes Total Critical Care Time: 40 Attestation: The patient was critically ill with a high probability of imminent or life- threatening deterioration. I spent greater than 30 minutes of discontinuous time evaluating the patient, delivering critical care at the bedside, discussing evaluating data with consultants. Critical care time does not include time spent performing separately billable procedures or teaching. Time spent performing critical care was 40 minutes. Discharge Plan Discharge Clinical Impression: Atrial flutter Qualifiers: Atrial flutter type: unspecified Qualified Code(s): I48.92 - Unspecified atrial flutter Patient Disposition: Admitted As Inpatient
[2024-02-02 08:04] LABS: MANUAL DIFF FLAG NO
[2024-02-02 08:05] LABS: Basophils Absolute Auto 0.1 X10*3/uL (0.0-0.2); Eosinophils Absolute Auto 0.1 X10*3/uL (0.0-0.4); Eosinophils Percent Auto 1.3 % (0-4); Hemoglobin 14.4 g/dl (12.0-16.0); Imm Gran Abs Auto 0.01 X10*3/uL (0.00-0.03); Imm Gran Pct Auto 0.1 % (0.0-0.4); Lymphocytes Absolute Auto 2.1 X10*3/uL (1.2-4.9); Lymphocytes Percent Auto 30.6 % (20-40); Mean Corpuscular HGB Conc 34.3 g/dl (31.0-35.0); Mean Corpuscular Hemoglobin 32.7 pg (27.0-33.0); Mean Corpuscular Volume 95.2 fL (80.0-98.0); Mean Platelet Volume 10.3 fL (9.4-12.3); Monocytes Absolute Auto 0.4 X10*3/uL (0.1-1.2); Monocytes Percent Auto 5.4 % (2-11); Neutrophils Absolute Auto 4.1 x10*3/uL (2.0-8.3); Neutrophils Percent Auto 61.6 % (45-73); Platelet Count 176 X10*3/uL (160-400); Red Blood Count 4.41 X10*6/uL (4.20-5.50); Red Cell Distribution Width 13.2 % (11.0-16.0); White Blood Count 6.7 X10*3/uL (4.8-10.8)
[2024-02-02] MEDS: dilTIAZem HCL 50 MG/10 ML VIAL 20 MG IVPUSH ×2 (08:06→10:02)
[2024-02-02 08:23] LABS: Alanine Aminotransferase 21 U/L (0-31); Albumin Level 4.4 g/dL (3.5-5.0); Alkaline Phosphatase 51 U/L (39-117); Anion Gap 16 (12-20); Aspartate Amino Transferase 32 U/L (5-31); Bilirubin Total 0.8 mg/dL (0.0-1.0); Blood Urea Nitrogen 8 mg/dL (9-16); Calcium 9.7 mg/dL (8.4-10.2); Carbon Dioxide 21 mmol/L (22-29); Chloride 107 mmol/L (96-108); Creatinine Clr Calc Pharmacy 70.8; Estimated Glomerular Filt Rate > 60; Glucose Random 181 mg/dL (60-115); Potassium 3.7 mmol/L (3.3-5.1); Sodium 140 mmol/L (135-145); Total Protein 6.9 g/dL (6.5-8.0)
[2024-02-02 08:30] LABS: Troponin-I High Sensitivity 4.7 ng/L (<3.5-17.0)
--- NOTE | 2024-02-02 08:35 | ECG_ITS ---
Test Reason : AFIB Blood Pressure : / mmHG Vent. Rate : 112 BPM Atrial Rate : 000 BPM P-R Int : 000 ms QRS Dur : 084 ms QT Int : 344 ms P-R-T Axes : 000 084 044 degrees QTc Int : 469 ms Atrial fibrillation with rapid ventricular response Low voltage QRS Cannot rule out Anterior infarct (cited on or before 02-MAY-2020) Abnormal ECG When compared with ECG of 02-FEB-2024 07:37, Atrial fibrillation has replaced Sinus rhythm Non-specific change in ST segment in Inferior leads ST no longer depressed in Lateral leads Nonspecific T wave abnormality has replaced inverted T waves in Inferior leads Referred By: Sami Juan Electronically Signed By:RUDDY LOPEZ MD
--- NOTE | 2024-02-02 09:39 | P.HPHOSP_ITS ---
History of Present Illness Date of Service: 02/02/24 Attending physician on admission: Norberto Conner Chief Complaint: palpitations 73 year old female with history of paroxysmal atrial fibrillation/flutter s/p successful cardioversion 04/2023 and htn presented to the ED fro evaluation of palpitations and chest tightness that started around 4am this morning. Does report drinking 2 glasses of wine last night. Reports drinking 2 glasses of wine about every other night. No other substance use or cigarette smoking. Denies recent illness. No fevers, chills, abd pain, n/v/d, urinary symptoms, lightheadedness, syncope, sob, or chest pressure. Does report a chronic dry cough. Has been compliant with medications. Since arrival, has been tachycardic to 144, initially in SVT, given 1 L IV NS, 12 mg adenosine and then 6mg adenosine converted into afib rvr. Vitals otherwise stable. She did then receive 20mg IV cardizem but is now back in the 140's on exam. Hematology studies unremarkable. Renal fx and lytes normal. Glucose 181. Trop 4.7. EKG shows afib rvr 112, non specific ST changes. Discussed with ED provider and pt will be started on cardizem drip. Review of Systems 2 Review of Systems: General: No fevers, malaise, unintentional weight loss HEENT: No blurred vision, diplopia. No sore throat, nasal congestion, rhinorrhea, sinus pain, ear pain Cardiovascular: +palpitations. No chest pain or leg edema Respiratory: No shortness of breath, wheezing, cough GI: No abdominal pain, nausea, vomiting, diarrhea, constipation, melena, hematochezia : No dysuria, hematuria, increased urinary frequency, decreased urinary output MSK: No myalgia, back pain Neuro: No headaches, weakness, paresthesias Skin: No rashes or lesions [facility] Medical History Atrial flutter Family History Mother Lung cancer Father Aortic aneurysm Surgical History No pertinent past surgical history Social History Alcohol intake: current Alcohol intake frequency: a few times a week Alcohol type: wine Patient Tobacco Use Status: Never used Tobacco Smoked in Last 30 Days: No Use of substances other than those prescribed or required for medical reasons: No Advance Directives: No Advance Directives Information Provided: Yes Nutrition Risks: No Nutritional Risk Meds Allergies Allergy/AdvReac Type Severity Reaction Status Date / Time No Known Allergies Allergy Verified 02/02/24 07:39 Active Medications: Current Medications Acetaminophen (Acetaminophen 325 Mg Tablet) 650 mg PO Q6H PRN PRN Reason: Pain, Mild (Pain Scale 1-3), fever or headache Calcium Carbonate (Calcium Carbonate 750 Mg Tab.Chew) 750 mg PO Q4H PRN PRN Reason: Heartburn Magnesium Hydroxide (Milk Of Magnesia 30 Ml Oral.Susp) 30 ml PO DAILY PRN PRN Reason: Constipation Melatonin (Melatonin 3 Mg Tablet) 6 mg PO BEDTIME PRN PRN Reason: Insomnia Sodium Chloride (0.9 % Sodium Chloride Flush 3 Ml Syringe) [facility] Medications ?Medication ?Instructions ?Recorded ?Confirmed ?Last Taken ?Type cholecalciferol (vitamin D3) 50 50 mcg PO DAILY 07/31/21 02/02/24 02/01/24 History mcg (2,000 unit) capsule cyanocobalamin (vitamin B-12) 250 500 mcg PO DAILY 02/02/24 02/02/24 02/01/24 History mcg tablet Physical Exam 2 Vital Signs and Narrative: Vital Signs: Last Vital Signs Temp 98.0 F 02/02/24 07:39 Pulse 91 02/02/24 08:14 Resp 12 02/02/24 08:14 BP 104/73 02/02/24 08:14 Pulse Ox 96 02/02/24 08:14 O2 Del Method Room Air 02/02/24 08:14 BMI result Body Mass Index 21.3 Constitutional - Awake and Alert, No apparent distress Eyes - PERRLA, EOMI Cardiovascular - S1S2, irregularly irregular tachycardic, No edema Respiratory - Normal lung expansion, Normal respiratory effort, No respiratory distress, CTA bilaterally Gastrointestinal - NT / ND; +BS; No rebound or guarding Extremities - no calf tenderness bilaterally, no swelling Skin - Warm/Dry Neurological - Alert & oriented x3 Psychological - Appropriate affect Results Labs 02/02/24 07:58 02/02/24 07:58 Labs: Laboratory Results - last 24 hr 02/02/24 07:58 MCV 95.2 MCH 32.7 MCHC 34.3 RDW 13.2 Plt Count 176 MPV 10.3 Immature Gran % (Auto) 0.1 Neut % (Auto) 61.6 Lymph % (Auto) 30.6 [place] % (Auto) 5.4 Eos % (Auto) 1.3 Baso % (Auto) 1.0 Lymph # (Auto) 2.1 [place] # (Auto) 0.4 Eos # (Auto) 0.1 Baso # (Auto) 0.1 Abs Immat Gran (auto) 0.01 Absolute Neuts (auto) 4.1 Absolute Nucleated RBC 0.000 Nucleated RBC % (auto) 0.0 Hold Purple Top SEE NOTE Hold Blue Top SEE NOTE Anion Gap 16 Estim Creat Clear Calc 70.8 Estimated GFR > 60 Random Glucose 181 H Calcium 9.7 Total Bilirubin 0.8 AST 32 H ALT 21 Alkaline Phosphatase 51 Troponin I High Sens 4.7 D Total Protein 6.9 Albumin 4.4 Assessment and Plan (1) Atrial fibrillation with RVR: Status: Acute Plan 73 year old female with history of paroxysmal atrial fibrillation/flutter s/p successful cardioversion 04/2023 and htn admitted for further management of afib rvr. #Paroxysmal atrial fibrillation with rvr -?precipitated by alcohol consumption last night. ?SVT vs afib on initial ekg -h/o successful cardizem drip 05/04 -received 20mg iv cardizem still in 140s. Initiate cardizem drip per protocol -continue eliquis for AC -cardiac diet -cardiology consult -monitor on tele #HTN -hold po cardizem. continue drip as above dvt prophylaxis- eliquis full code pt requires inpt stay at least 2 midnights for management of afib rvr on cardizem drip and requiring close cardiac monitoring and expert consultation Quality Stroke Does the patient have a stroke diagnosis?: No VTE Prior VTE?: No VTE Risk Level:: Medical - moderate - high VTE Device Contraindication: Treatment Not Indicated VTE Drug Contraindication: N/A - Med Ordered
[2024-02-02] MEDS: dilTIAZem HCL 125 MG in 0.9 % Sodium Chloride 100 ML 10 MG IVCONT (10:11)
[2024-02-02 12:08] LABS: Magnesium 1.8 mg/dL (1.6-2.6)
--- NOTE | 2024-02-02 12:31 | P.CONCA_ITS ---
History of Present Illness History of Present Illness Date of Service: 02/02/24 Requesting physician: Norberto Conner Chief complaint: AFIB rvr Narrative: 73-year-old lady who is here for atrial flutter. She has known history of atrial flutter in the past. Was on Eliquis and Cardizem. She said she started having palpitations last night. She said she was at a [employer] but did not drink more than usual. He usually drinks 2 glasses of wine every other day. Taking Eliquis regularly and has not missed any doses. She is in atrial flutter with heart rates in 140s currently on Cardizem drip 15 milligram/hour. No bleeding concerns. No other symptoms. [facility] Past Medical History Medical History Atrial flutter Family History Family History Mother Lung cancer Father Aortic aneurysm Surgical History Surgical History No pertinent past surgical history Social History Social History Alcohol intake: current Alcohol intake frequency: a few times a week Alcohol type: wine Patient Tobacco Use Status: Never used Tobacco Smoked in Last 30 Days: No Use of substances other than those prescribed or required for medical reasons: No Advance Directives: No Advance Directives Information Provided: Yes Nutrition Risks: No Nutritional Risk Meds Allergies Allergy/AdvReac Type Severity Reaction Status Date / Time No Known Allergies Allergy Verified 02/02/24 07:39 Active Medications: Current Medications Acetaminophen (Acetaminophen 325 Mg Tablet) 650 mg PO Q6H PRN PRN Reason: Pain, Mild (Pain Scale 1-3), fever or headache Apixaban (Apixaban 5 Mg Tablet) 5 mg PO BID GISELLE Calcium Carbonate (Calcium Carbonate 750 Mg Tab.Chew) 750 mg PO Q4H PRN PRN Reason: Heartburn Cyanocobalamin (Cyanocobalamin (Vitamin B-12) 500 Mcg Tablet) 500 mcg PO DAILY GISELLE Diltiazem HCl 125 mg/ Sodium (Chloride) 125 mls @ 0 mls/hr IVCONT .Q0M GISELLE; Protocol Last Titration: 02/02/24 10:30 Dose: 15 mg/hr, 15 mls/hr Magnesium Hydroxide (Milk Of Magnesia 30 Ml Oral.Susp) 30 ml PO DAILY PRN PRN Reason: Constipation Melatonin (Melatonin 3 Mg Tablet) 6 mg PO BEDTIME PRN PRN Reason: Insomnia Metoprolol Tartrate (Metoprolol Tartrate 5 Mg/5 Ml Vial) 5 mg IVPUSH Q6H PRN; Protocol PRN Reason: Heart Rate >100 Metoprolol Tartrate (Metoprolol Tartrate 25 Mg Tablet) 25 mg PO QID [facility]; Protocol Sodium Chloride (0.9 % Sodium Chloride Flush 3 Ml Syringe) 3 ml IVFLUSH QSHIFT [facility] Vitamin D (Cholecalciferol (Vitamin D3) 25 Mcg Tablet) 50 mcg PO DAILY [facility] Home Medications ?Medication ?Instructions ?Recorded ?Confirmed ?Last Taken ?Type cholecalciferol (vitamin D3) 50 50 mcg PO DAILY 07/31/21 02/02/24 02/01/24 History mcg (2,000 unit) capsule cyanocobalamin (vitamin B-12) 250 500 mcg PO DAILY 02/02/24 02/02/24 02/01/24 History mcg tablet Physical Exam 2 Vital Signs: Vital Signs: Last Vital Signs Temp 98.0 F 02/02/24 07:39 Pulse 125 H 02/02/24 10:28 Resp 15 02/02/24 10:28 BP 122/99 H 02/02/24 10:28 Pulse Ox 96 02/02/24 10:28 O2 Del Method Room Air 02/02/24 10:28 BMI result Body Mass Index 21.3 GENERAL APPEARANCE: in no acute distress, pleasant. NECK: no carotid bruit, no jugular venous distention. SKIN: no suspicious lesions, warm and dry. HEART: no murmurs, regular tachycardic. LUNGS: clear to auscultation bilaterally. ABDOMEN: soft, nontender. EXTREMITIES: no edema. PERIPHERAL PULSES: equal. NEUROLOGIC: No gross deficits, AAO X 3 Objective Labs and Meds 02/02/24 07:58 02/02/24 07:58 Lab results: Laboratory Results - last 24 hr 02/02/24 07:58 WBC 6.7 RBC 4.41 Hgb 14.4 Hct 42.0 MCV 95.2 MCH 32.7 MCHC 34.3 RDW 13.2 Plt Count 176 MPV 10.3 Immature Gran % (Auto) 0.1 Neut % (Auto) 61.6 Lymph % (Auto) 30.6 [place] % (Auto) 5.4 Eos % (Auto) 1.3 Baso % (Auto) 1.0 Lymph # (Auto) 2.1 [place] # (Auto) 0.4 Eos # (Auto) 0.1 Baso # (Auto) 0.1 Abs Immat Gran (auto) 0.01 Absolute Neuts (auto) 4.1 Absolute Nucleated RBC 0.000 Nucleated RBC % (auto) 0.0 Hold Purple Top SEE NOTE Hold Blue Top SEE NOTE Sodium 140 Potassium 3.7 Chloride 107 Carbon Dioxide 21 L Anion Gap 16 BUN 8 L Creatinine 0.73 Estim Creat Clear Calc 70.8 Estimated GFR > 60 Random Glucose 181 H Calcium 9.7 Magnesium 1.8 Total Bilirubin 0.8 AST 32 H ALT 21 Alkaline Phosphatase 51 Troponin I High Sens 4.7 D Total Protein 6.9 Albumin 4.4 Assessment and Plan (1) Atrial flutter: Qualifiers: Atrial flutter type: unspecified Qualified Code(s): I48.92 - Unspecified atrial flutter Status: Acute Plan Pleasant 73 year female who is presenting with palpitations and atrial flutter. She has known history of atrial flutter previously. On apixaban 5 mg twice a day. Continue Cardizem drip and add metoprolol p.o.. Keep NPO after midnight for potential cardioversion tomorrow. She should get Eliquis b.i.d. and no doses should be missed. Would start her on Multaq 400 mg twice a day after cardioversion. I have discussed with her about ablation and we will discuss this further as outpatient. Thank you for allowing me to participate in the care of your patient. Please feel free to contact me if you have any questions. Procedures Date of Service Date of Service: 02/02/24
--- NOTE | 2024-02-02 12:49 | PC.NURSE ---
per pt she had an adverse reaction to metoprolol in the past and had to discontinue the med, informed MD lee of this
[2024-02-02] MEDS: 0.9 % Sodium Chloride Flush 3 ML SYRINGE IVFLUSH ×2 (15:35→22:02)
[2024-02-02] MEDS: dilTIAZem HCL 30 MG TABLET PO ×3 (15:36→22:01)
[2024-02-02] MEDS: Acetaminophen 325 MG TABLET 650 MG PO (15:37)
--- NOTE | 2024-02-02 17:59 | PC.NURSE ---
PT arrived from ED after PO dose of cardizem given. Cardizem gtt off per MD and patient transported without gtt running. HR 100-110 Aflutter on tele upon arrival. Pt A+Ox4, ambulated with steady gait. Will continue order of PO Cardizem QID.
[2024-02-02] MEDS: Apixaban 5 MG TABLET PO (21:59)
[2024-02-03] VITALS: BP 143/95; PULSE 90; RESP 18; TEMP 36.8; O2SAT 97
--- NOTE | 2024-02-03 01:33 | ECG_ITS ---
Test Reason : Check to see if patient has converted. Blood Pressure : / mmHG Vent. Rate : 054 BPM Atrial Rate : 054 BPM P-R Int : 198 ms QRS Dur : 094 ms QT Int : 468 ms P-R-T Axes : 034 050 067 degrees QTc Int : 443 ms Sinus bradycardia Low voltage QRS Cannot rule out Anterior infarct (cited on or before 02-MAY-2020) Abnormal ECG When compared with ECG of 02-FEB-2024 08:39, Sinus rhythm has replaced Atrial fibrillation Vent. rate has decreased BY 58 BPM Referred By: Kota Gutierrez Electronically Signed By:RUDDY LOPEZ MD
[2024-02-03 04:00] VITALS: BP 125/74; PULSE 60; RESP 18; TEMP 36.7; O2SAT 99
[2024-02-03 06:46] LABS: MANUAL DIFF FLAG NO
[2024-02-03 06:52] LABS: Basophils Absolute Auto 0.1 X10*3/uL (0.0-0.2); Basophils Percent Auto 1.1 % (0-2); Eosinophils Absolute Auto 0.1 X10*3/uL (0.0-0.4); Eosinophils Percent Auto 2.1 % (0-4); Hematocrit 40.9 % (37.0-47.0); Hemoglobin 13.6 g/dl (12.0-16.0); Imm Gran Abs Auto 0.01 X10*3/uL (0.00-0.03); Imm Gran Pct Auto 0.2 % (0.0-0.4); Lymphocytes Absolute Auto 2.3 X10*3/uL (1.2-4.9); Lymphocytes Percent Auto 44.3 % (20-40); Mean Corpuscular HGB Conc 33.3 g/dl (31.0-35.0); Mean Corpuscular Hemoglobin 32.6 pg (27.0-33.0); Mean Corpuscular Volume 98.1 fL (80.0-98.0); Mean Platelet Volume 10.6 fL (9.4-12.3); Monocytes Absolute Auto 0.3 X10*3/uL (0.1-1.2); Monocytes Percent Auto 5.1 % (2-11); Neutrophils Absolute Auto 2.5 x10*3/uL (2.0-8.3); Neutrophils Percent Auto 47.2 % (45-73); Platelet Count 167 X10*3/uL (160-400); Red Blood Count 4.17 X10*6/uL (4.20-5.50); Red Cell Distribution Width 13.5 % (11.0-16.0); White Blood Count 5.3 X10*3/uL (4.8-10.8)
[2024-02-03 07:14] LABS: Anion Gap 11 (12-20); Blood Urea Nitrogen 13 mg/dL (9-16); Calcium 8.9 mg/dL (8.4-10.2); Carbon Dioxide 24 mmol/L (22-29); Chloride 109 mmol/L (96-108); Creatinine Clr Calc Pharmacy 74.9; Estimated Glomerular Filt Rate > 60; Glucose Random 108 mg/dL (60-115); Potassium 3.3 mmol/L (3.3-5.1); Sodium 141 mmol/L (135-145)
[2024-02-03 08:00] VITALS: BP 138/85; PULSE 67; RESP 18; TEMP 36.7; O2SAT 98
[2024-02-03] MEDS: Cyanocobalamin (Vitamin B-12) 500 MCG TABLET PO (08:56)
[2024-02-03] MEDS: Cholecalciferol (Vitamin D3) 25 MCG TABLET 50 MCG PO (08:56)
[2024-02-03] MEDS: Apixaban 5 MG TABLET PO (08:56)
[2024-02-03] MEDS: dilTIAZem HCL 30 MG TABLET PO (08:56)
[2024-02-03] MEDS: 0.9 % Sodium Chloride Flush 3 ML SYRINGE IVFLUSH (08:58)
--- NOTE | 2024-02-03 09:35 | MHC.CM.PN ---
IMM 02/03/24, Pt lives with spouse, is independent, no home health services, to transport home at DC. Pt. has HCP, will provide copy. CM to follow for DC needs.
--- NOTE | 2024-02-03 10:27 | PM.DS ---
DS: Providers Provider Date of Service: 02/03/24 Date of admission: 02/02/24 09:36 Primary care physician: Rolando Velázquez MD Consults: 02/02/24 09:38 Consult to Cardiology Routine Consulting Provider: [facility] Reason for consultation: afib rvr DS: Diagnosis Discharge Diagnosis (1) Atrial fibrillation with RVR: Status: Acute DS: Summary Hospital Course Hospital Course: admission hpi palpitations 73 year old female with history of paroxysmal atrial fibrillation/flutter s/p successful cardioversion 04/2023 and htn presented to the ED fro evaluation of palpitations and chest tightness that started around 4am this morning. Does report drinking 2 glasses of wine last night. Reports drinking 2 glasses of wine about every other night. No other substance use or cigarette smoking. Denies recent illness. No fevers, chills, abd pain, n/v/d, urinary symptoms, lightheadedness, syncope, sob, or chest pressure. Does report a chronic dry cough. Has been compliant with medications. Since arrival, has been tachycardic to 144, initially in SVT, given 1 L IV NS, 12 mg adenosine and then 6mg adenosine converted into afib rvr. Vitals otherwise stable. She did then receive 20mg IV cardizem but is now back in the 140's on exam. Hematology studies unremarkable. Renal fx and lytes normal. Glucose 181. Trop 4.7. EKG shows afib rvr 112, non specific ST changes. Discussed with ED provider and pt will be started on cardizem drip. Hospital course: This patient, known to have AFIB/flutter and a history of cardioversion, presented with palpitations and was found to be in AFIB with RVR. IV cardizem was started for heart rate control, successfully converting her back to sinus rhythm. The production control analyst recommended discontinuing cardizem and starting Multaq 400 mg twice daily in an attempt to maintain sinus rhythm. To continue Eliquis for stroke prevention Time Attestation Discharge Coordination Time (in mins): 35 Quality: Safe Use of Opioids Does Pt have an Active Cancer Diagnosis on the Problem List?: No Quality: Stroke Does the patient have a stroke diagnosis?: No Physical Exam Vital Signs: Vital Signs: Last Vital Signs Temp 98.0 F 02/03/24 08:00 Pulse 67 02/03/24 08:00 Resp 18 02/03/24 08:00 BP 138/85 02/03/24 08:00 Pulse Ox 98 02/03/24 08:00 O2 Del Method Room Air 02/03/24 08:00 O2 Flow Rate 97 02/02/24 16:00 BMI result Body Mass Index 21.3 General: AO X 3, no acute distress Resp: CTA bilateral CVS: S1,S2,RRR GI: +BS, NT, no distention Skin: No rash Neuro: motor grossly intact Psych: appropriate affect DS: Data Data Completed and Pending Labs on day of discharge: Laboratory Results - last 24 hr 02/02/24 02/03/24 07:58 06:23 WBC 5.3 RBC 4.17 L Hgb 13.6 Hct 40.9 MCV 98.1 H MCH 32.6 MCHC 33.3 RDW 13.5 Plt Count 167 MPV 10.6 Immature Gran % (Auto) 0.2 Neut % (Auto) 47.2 Lymph % (Auto) 44.3 H [place] % (Auto) 5.1 Eos % (Auto) 2.1 Baso % (Auto) 1.1 Lymph # (Auto) 2.3 [place] # (Auto) 0.3 Eos # (Auto) 0.1 Baso # (Auto) 0.1 Abs Immat Gran (auto) 0.01 Absolute Neuts (auto) 2.5 Absolute Nucleated RBC 0.000 Nucleated RBC % (auto) 0.0 Sodium 141 Potassium 3.3 Chloride 109 H Carbon Dioxide 24 Anion Gap 11 L BUN 13 Creatinine 0.69 Estim Creat Clear Calc 74.9 Estimated GFR > 60 Random Glucose 108 Calcium 8.9 D Magnesium 1.8 Discharge Plan Discharge Anticipated Discharge Date/Time: 02/03/24 10:17 Patient Disposition: Home, Self-Care Discharge Diagnosis: Aflutter Referrals: Rolando Velázquez MD [Primary Care Provider] - 1 Week Discharge Medications: New Multaq 400 mg Tablet 400 mg PO BID Qty: 180 0RF Continued apixaban 5 mg tablet 5 mg PO BID Qty: 180 3RF cyanocobalamin (vitamin B-12) 250 mcg Tablet 500 mcg PO DAILY cholecalciferol (vitamin D3) 50 mcg (2,000 unit) capsule 50 mcg PO DAILY Discontinued diltiazem HCl 120 mg capsule,extended release 24hr 120 mg PO DAILY Qty: 90 3RF Discharge Orders: Discharge Order (Routine); Ordered 02/03/24 Ordered By: Kota Gutierrez Diet: Advance to usual diet Activity on Discharge: As tolerated Stand Alone Forms: Patient Portal Discharge page Print Language: [place]i Care Plan Goals: Control of atrial fibrillation and prevent stroke Health Concerns: atrial fibrilation Plan of Treatment: take Multaq as recommended, stop taking cardiazem... Continue all other medication Assessment: see above
[2024-02-03] MEDS: Dronedarone HCl 400 MG TABLET PO (10:38)
--- NOTE | 2024-02-03 10:40 | MHC.CM.PN ---
Pt has been medically cleared for DC, her will pick her up, DCP: home, self care.
--- NOTE | 2024-02-03 12:28 | P.PNCA_ITS ---
Subjective Subjective Date of Service: 02/03/24 Principal diagnosis: Paroxysmal atrial fibrillation Interval history: Patient converted overnight to sinus rhythm. Feeling quite well. Hemodynamically stable. Heart rate in the 60s. No heart failure symptoms. Review of Systems Review of Systems Yes all other systems are reviewed and are negative Physical Exam Vital Signs: Last Vital Signs Temp 98.0 F 02/03/24 08:00 Pulse 67 02/03/24 08:00 Resp 18 02/03/24 08:00 BP 138/85 02/03/24 08:00 Pulse Ox 98 02/03/24 08:00 O2 Del Method Room Air 02/03/24 08:00 O2 Flow Rate 97 02/02/24 16:00 BMI result Body Mass Index 21.3 GENERAL APPEARANCE: in no acute distress, pleasant. NECK: no carotid bruit, no jugular venous distention. SKIN: no suspicious lesions, warm and dry. HEART: no murmurs, regular and normal rate. LUNGS: clear to auscultation bilaterally. ABDOMEN: soft, nontender. EXTREMITIES: no edema. PERIPHERAL PULSES: equal. NEUROLOGIC: No gross deficits, AAO X 3 Objective Labs and Meds 02/03/24 06:23 02/03/24 06:23 Lab results: Laboratory Results - last 24 hr 02/03/24 06:23 WBC 5.3 RBC 4.17 L Hgb 13.6 Hct 40.9 MCV 98.1 H MCH 32.6 MCHC 33.3 RDW 13.5 Plt Count 167 MPV 10.6 Immature Gran % (Auto) 0.2 Neut % (Auto) 47.2 Lymph % (Auto) 44.3 H [place] % (Auto) 5.1 Eos % (Auto) 2.1 Baso % (Auto) 1.1 Lymph # (Auto) 2.3 [place] # (Auto) 0.3 Eos # (Auto) 0.1 Baso # (Auto) 0.1 Abs Immat Gran (auto) 0.01 Absolute Neuts (auto) 2.5 Absolute Nucleated RBC 0.000 Nucleated RBC % (auto) 0.0 Sodium 141 Potassium 3.3 Chloride 109 H Carbon Dioxide 24 Anion Gap 11 L BUN 13 Creatinine 0.69 Estim Creat Clear Calc 74.9 Estimated GFR > 60 Random Glucose 108 Calcium 8.9 D Progress Note: A&P Assessment and plan (1) Atrial fibrillation with RVR: Status: Acute Assessment and Plan: Highly symptomatic paroxysmal atrial flutter/fibrillation converted spontaneously with rate control. At this point time will switch her to Multaq 400 mg b.i.d. and discontinue Cardizem therapy. Continue full oral anticoagulation Eliquis. Advised to monitor blood pressure at home and may need to switch antihypertensive therapy to amlodipine as outpatient. Refer to EPS by Dr. Mae. Will set up for follow-up after Holter monitor. Thank you for allowing me to partake in the care Time Spent With Patient Time: Total time managing care of this patient today ____ minutes. Progress Note: Quality Stroke Does the patient have a stroke diagnosis?: No Procedures Date of Service Date of Service: 02/03/24
== END 2024-02-03 11:11 | disposition home or self-care (01) | DRG 310 ==
LOC: HO.ED 09:02 → HO.EDOVER 09:40 → HO.IMC 16:03
PROVIDERS: Student in an Organized Health Care Education/Training Program; Admitting Provider Physician Assistant; Emergency Provider Emergency Medicine; PCP Internal Medicine; Visit Provider Internal Medicine
DX: I48.92 Unspecified atrial flutter (principal); I48.0 Paroxysmal atrial fibrillation; I10 Essential (primary) hypertension; Z79.01 Long term (current) use of anticoagulants; Z79.899 Other long term (current) drug therapy
CPT/HCPCS: 36415; 80048; 80053; 83735; 84484; 85025; 93005; 99285; J0153; Q9957

== ENCOUNTER 2024-02-02 09:36 | Outpatient (BNV) | payer MEDICARE, SELFPAY | END 2024-02-03 01:33 | PROVIDERS: Admitting Provider Physician Assistant; Emergency Provider Emergency Medicine; PCP Internal Medicine; Visit Provider Internal Medicine Cardiovascular Disease | DX: R00.1 Bradycardia, unspecified (principal); R94.31 Abnormal electrocardiogram [ECG] [EKG] | CPT/HCPCS: 93010 ==

== ENCOUNTER → 2024-02-02 09:36 | Outpatient (BNV) | payer MEDICARE, SELFPAY | PROVIDERS: Admitting Provider Physician Assistant; Emergency Provider Emergency Medicine; PCP Internal Medicine; Visit Provider Internal Medicine Cardiovascular Disease | DX: I48.91 Unspecified atrial fibrillation (principal) | CPT/HCPCS: 93010; 99223; 99233 ==

== ENCOUNTER → 2024-02-02 09:36 | Outpatient (BNV) | payer MEDICARE, SELFPAY | PROVIDERS: Admitting Provider Physician Assistant; Emergency Provider Emergency Medicine; PCP Internal Medicine; Visit Provider Physician Assistant | DX: I48.91 Unspecified atrial fibrillation (principal) | CPT/HCPCS: 99223; 99239 ==

== ENCOUNTER 2024-03-04 09:01 | Outpatient (AMB) | payer MEDICARE, SELFPAY ==
[2024-03-04 09:08] VITALS: BP 130/70; PULSE 71; BMI 19.6
--- NOTE | 2024-03-04 09:08 | MHC.OFFVIS ---
Vital Signs 03/04/24 09:08 Height 5 ft 8 in Weight 128 lb 11.999 oz BMI 19.6 BP 130/70 Blood Pressure Location Lt brachial Position Sitting Pulse 71 Pulse Source Monitor Intake Visit Reasons: 6 mth f/up Jewel Hole Driller Required: No Accompanied by: Self / Same As Patient Allergies No Known Allergies Allergy (Verified 02/02/24 07:39) Medication List - Last Reconciled 03/04/24 by Albert Mae MD apixaban 5 mg PO BID cholecalciferol (vitamin D3) 50 mcg PO DAILY cyanocobalamin (vitamin B-12) 500 mcg PO DAILY dronedarone (Multaq) 400 mg PO BID HPI Comments Details: Pleasant 73-year-old female who is here for follow-up. She was seen previously for atrial flutter. She has been on Eliquis. Denying any symptoms. Previously was noted to have high BP but was under a lot of stress so medications were not added. It appears on follow up with her PCP her BP was still high and she was started on Losartan which she has been tolerating well. No bleeding concerns. 05/06/23: She returns for follow-up. She did well for 3 years and recently went to emergency department with palpitations and was in atrial flutter again. She was cardioverted and discharged home on diltiazem 120 mg twice a day. She was already taking apixaban 5 mg twice a day. She returns for follow-up and has been doing okay. No further palpitations. She is drinking 2 glasses of wine per day. We discussed about alcohol intake and risk of arrhythmia. 03/04/2024: She got admitted to hospital in 01/30/2024 for palpitations and atrial flutter. Plan was to do cardioversion but she spontaneously converted to sinus rhythm and was started on Multaq at discharge. She continues to be on apixaban 5 mg twice a day. On follow-up her ECG showing sinus rhythm. She has no symptoms. She is getting some side effects from Multaq and he is saying that since she started it she has been getting 1 episode of diarrhea every few days. He is also feeling tired but symptoms are improving. [facility] Medical History (Updated 03/04/24 @ 09:32 by Albert Mae MD) Atrial flutter Surgical History No pertinent past surgical history Family History Mother Lung cancer Father Aortic aneurysm Social History Household Members: Spouse Housing: House Do you presently have visiting nurse or other home services: No Alcohol intake: current Alcohol intake frequency: a few times a week Alcohol type: wine Patient Tobacco Use Status: Never used Tobacco Substance Use Type: Other service: No Review of Systems Const Denies chills, Denies fatigue, Denies fever(s), Denies frequent falls, Denies weakness, Denies weight gain and Denies weight loss ENT Denies dizziness Card Denies chest pain, Denies leg edema, Denies lightheadedness, Denies palpitations, Denies dyspnea and Denies dyspnea on exertion Resp Denies cough, Denies dyspnea and Denies dyspnea on exertion GI Denies hematochezia Musc Denies abnormal gait, Denies muscle weakness, Denies numbness, Denies radiating pain into limb and Denies tingling Neuro Denies abnormal gait, Denies dizziness, Denies frequent falls, Denies numbness, Denies tingling and Denies weakness Endo Denies fatigue and Denies palpitations Physical Exam Vital Signs: Last Vital Signs Pulse 71 03/04/24 09:08 BP 130/70 03/04/24 09:08 BMI result Body Mass Index 19.6 GENERAL APPEARANCE: in no acute distress, pleasant. NECK: no carotid bruit, no jugular venous distention. SKIN: no suspicious lesions, warm and dry. HEART: no murmurs, regular rate and rhythm. LUNGS: clear to auscultation bilaterally. ABDOMEN: soft, nontender. EXTREMITIES: no edema. PERIPHERAL PULSES: equal. NEUROLOGIC: No gross deficits, AAO X 3 Office Procedures EKG Details: Sinus rhythm 71 beats per minute, normal axis, low voltage, poor R-wave progression and can not rule out anterior infarct, QTC 447 milliseconds. [id number]-[id number], Complete Assessment & Plan Assessment & Plan (1) Atrial flutter: Code(s): I48.92 - Unspecified atrial flutter Category: Medical Qualifiers: Atrial flutter type: unspecified Qualified Code(s): I48.92 - Unspecified atrial flutter Plan Pleasant 73 year female who is here for follow-up. She has background history of atrial flutter. Recent presentation to [facility] when she was admitted for cardioversion but spontaneously converted to sinus rhythm. She was started on Multaq after that and has been doing well from rhythm control point of view but has been getting some GI issues. So far she feels they are tolerable. Continue apixaban 5 mg twice a day. I have discussed with her about ablation. Atrial flutter ablation has good success rate. She will think about it. If she is interested then we will refer her to [facility]. Thank you for allowing me to participate in the care of your patient. Please feel free to contact me if you have any questions. Coding Level of Care Code Est Pt Level 4 (34004) Diagnoses Atrial flutter, unspecified type I48.92 Atrial flutter type: unspecified CPT Codes EKG - CPT: 42340-Nzxxxnykmyosvdgha, Complete ([id number])
== END 2024-03-04 09:35 | disposition home or self-care (01) ==
PROVIDERS: PCP Internal Medicine; Visit Provider Internal Medicine Cardiovascular Disease
DX: I48.92 Unspecified atrial flutter (principal)
CPT/HCPCS: 93010; 99214

== ENCOUNTER → 2024-03-04 09:01 | Outpatient (BNVA) | payer MEDICARE, SELFPAY | PROVIDERS: PCP Internal Medicine; Visit Provider Internal Medicine Cardiovascular Disease | DX: I48.92 Unspecified atrial flutter (principal); R00.2 Palpitations; Z79.01 Long term (current) use of anticoagulants | CPT/HCPCS: 93005; 99212 ==

== ENCOUNTER 2024-10-12 13:51 | Outpatient (AMB) | payer MEDICARE, SELFPAY ==
--- NOTE | 2024-10-12 13:56 | A.OFFVIS_ITS ---
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 She was seen previously for atrial flutter. She has been on Eliquis. Denying any symptoms. Previously was noted to have high BP but was under a lot of stress so medications were not added. It appears on follow up with her PCP her BP was still high and she was started on Losartan which she has been tolerating well. No bleeding concerns. 05/06/23: She returns for follow-up. She did well for 3 years and recently went to emergency department with palpitations and was in atrial flutter again. She was cardioverted and discharged home on diltiazem 120 mg twice a day. She was already taking apixaban 5 mg twice a day. She returns for follow-up and has been doing okay. No further palpitations. She is drinking 2 glasses of wine per day. We discussed about alcohol intake and risk of arrhythmia. 03/04/2024: She got admitted to hospital in 01/30/2024 for palpitations and atrial flutter. Plan was to do cardioversion but she spontaneously converted to sinus rhythm and was started on Multaq at discharge. She continues to be on apixaban 5 mg twice a day. On follow-up her ECG showing sinus rhythm. She has no symptoms. She is getting some side effects from Multaq and he is saying that since she started it she has been getting 1 episode of diarrhea every few days. He is also feeling tired but symptoms are improving. 10/12/2024: She is here for follow-up. Doing well on Multaq in terms of flutter controlled but getting some side effects from Multaq. Taking medications otherwise regularly. We discussed about ablation in detail and she is interested and I am referring her for further discussion. COUNT INCLUDES [facility] Medical History (Updated 03/04/24 @ 09:32 by Albert Mae MD) Atrial flutter Surgical History No pertinent past surgical history Family History Mother Lung cancer Father Aortic aneurysm Social History Household Members: Spouse Housing: House Do you presently have visiting nurse or other home services: No Alcohol intake: current Alcohol intake frequency: a few times a week Alcohol type: wine Patient Tobacco Use Status: Never used Tobacco Substance Use Type: Other service: No Review of Systems Const Denies chills, Denies fatigue, Denies fever(s), Denies frequent falls, Denies weakness, Denies weight gain and Denies weight loss ENT Denies dizziness Card Denies chest pain, Denies leg edema, Denies lightheadedness, Denies palpitations, Denies dyspnea and Denies dyspnea on exertion Resp Denies cough, Denies dyspnea and Denies dyspnea on exertion GI Denies hematochezia Musc Denies abnormal gait, Denies muscle weakness, Denies numbness, Denies radiating pain into limb and Denies tingling Neuro Denies abnormal gait, Denies dizziness, Denies frequent falls, Denies numbness, Denies tingling and Denies weakness Endo Denies fatigue and Denies palpitations Physical Exam Vital Signs: Last Vital Signs Pulse 69 10/12/24 13:59 BP 120/70 10/12/24 13:59 BMI result Body Mass Index 19.7 GENERAL APPEARANCE: in no acute distress, pleasant. NECK: no carotid bruit, no jugular venous distention. SKIN: no suspicious lesions, warm and dry. HEART: no murmurs, regular rate and rhythm. LUNGS: clear to auscultation bilaterally. ABDOMEN: soft, nontender. EXTREMITIES: no edema. PERIPHERAL PULSES: equal. NEUROLOGIC: No gross deficits, AAO X 3 Office Procedures EKG Details: Sinus rhythm 69 beats per minute with occasional PVCs, rightward axis, poor R- wave progression and can not rule out anteroseptal infarct, QTC 447 milliseconds. [id number]-Xyajdylylzvmqfove, Complete Assessment & Plan Assessment & Plan (1) Atrial flutter: Code(s): I48.92 - Unspecified atrial flutter Category: Medical Qualifiers: Atrial flutter type: unspecified Qualified Code(s): I48.92 - Unspecified atrial flutter Plan [age] year female who is here for follow-up. She has background history of atrial flutter and is currently being treated with Multaq and Eliquis. She is in sinus rhythm. Overall doing okay with Multaq but getting some side effects. We discussed about ablation and she is interested. I will refer her for further discussion to electrophysiology. Continue Eliquis as before. Thank you for allowing me to participate in the care of your patient. Please feel free to contact me if you have any questions. Orders: Referrals Cardiac Electrophysiology Referral I48.92 - Unspecified atrial flutter Coding Level of Care Code Est Pt Level 4 (81252) Diagnoses Atrial flutter, unspecified type I48.92 Atrial flutter type: unspecified CPT Codes EKG - CPT: 33926-Hwuujcyykxhiqbtol, Complete ([id number])
[2024-10-12 13:59] VITALS: BP 120/70; PULSE 69; BMI 19.7
--- OUTSIDE RECORDS SUMMARY | 2024-10-12 16:25 | XMS_ITS | Data Portability ---
Author Organization [facility] [address] Address [address] [place] [address] Care Team Providers Care Journeyman Level Acoustic Analyst Name Role Phone GT SINGH Primary Care Provider Assessment No assessment recorded. Plan of Treatment Reminders Order Date Submit Date Provider Last Modified By Organization Details Last Modified Time Details Appointments None recorded. Lab None recorded. Referral None recorded. Procedures None recorded. Surgeries None recorded. Imaging None recorded. Medication Orders ofloxacin 0.3 % eye drops 2022 023 [facility] #[id number], [address] , [place], [address], 12:13:28 Patient TargetsNo targets recorded. Patient Instructions Encounter Date Encounter Id Patient Instructions Last Modified By Organization Details Last Modified Time 11/03/2022 [id number] pinkeye: care instructions Not available 11/03/2022 12:13:31 cough: care instructions Not available 11/03/2022 12:13:20 Reason for Referral None Reported. Problems Name Problem SNOMED Code Status Onset Date Resolution Date Notes Provider Name and Address Organization Details Recorded Time Atrial fibrillation 09501546 Active 2022 Haleigh gold, [place] - [facility] 3 11:32:06 Hypertensive disorder 79454358 Active 2022 Haleigh gold, [place] - [facility] 3 11:32:13 Celiac disease 830921485 Active 2022 Haleigh gold, [place] - [facility] 11:32:26 Problem Notes None recorded. Medical Equipment None Reported. Allergies No known drug allergies Medications Name Sig Start Date Stop Date Status Note LastModified by Organization Details LastModified Time ofloxacin 0.3 % eye drops INSTILL 1 DROP INTO AFFECTED EYE(S) BY OPHTHALMIC ROUTE 4 TIMES PER DAY x 7 d 2022 active Not Available Not Available Not Avai lable losartan active Not Available Not Avai lable Not Available Eliquis active Not Available Not Avail able Not Available Vitals Date Recorded Body height Body mass index (BMI) Body weight Pain severity - 0-10 verbal numeric rating [Score] - Reported Oxygen saturation Oxygen saturation in Arterial blood by Pulse oximetry Heart rate Respiratory rate Body temperature Systolic blood pressure Diastolic blood pressure Provider Name and Address Organization Details Last Updated DateTime 3 172.72 cm 20.1 kg/m2 81242.1 9 g 0 98 % 98 % 84 /min 18 /min 98.1 [degF] 132 mm[Hg] 84 mm[Hg] Haleigh Fitzgerald PA [facility] 11:35:19 Social History Question Answer Notes LastModified by Organizat ion Details LastModified Time Tobacco Smoking Status Never Smoker Haleigh gold PA [facility] 11/03/2022 11:33:35 What Is Your Level Of Alcohol Consumption? Occasional Information not available 11/03/2022 How Many Times Per Week Do You Consume Alcohol? 5-7 Times Per Week Information not available 11/03/2022 Do You Use Any Illicit Or Recreational Drugs? No Information not available 11/03/2022 Have You Recently Traveled Abroad? No Information not available 11/03/2022 Do You Or Have You Ever Used Any Other Forms Of Tobacco Or Nicotine? No Information not available 11/03/2022 Sex: Unknown Functional Status None recorded. Mental Status None recorded. Family History Relationship Description Onset Age of this Age Resolved Age Notes LastModified by Organization Details LastModified Time Sister Malignant tumor of breast emonfette Not available 2022 11:32:57 Medical History No medical history recorded. Gynecological HistoryNo gynecological history recorded. Obstetrics History GPAL:G 0 P 0 0 0 0 Immunizations Vaccine Type Date Status Note Provider Nam e and Address Organization Details Recorded Time zoster recombinant 0 completed Haleigh Monfette null, PA - [facility] 11/03/2022 11:31:31 Influenza, high-dose, quadrivalent, PF 2 completed Haleigh Monfette null, PA - [facility] 11/03/2022 11:31:31 Influenza, adjuvanted, quadrivalent, PF 0 completed Haleigh Monfette null, PA - [facility] 11/03/2022 11:31:31 Influenza, adjuvanted, quadrivalent, PF 1 completed Haleigh Monfette null, PA - [facility] 11/03/2022 11:31:31 COVID-19, mRNA, LNP-S, PF, 100 mcg/0.5mL dose or 50 mcg/0.25mL dose 1 completed Haleigh Monfette null, PA - [facility] 11/03/2022 11:31:31 COVID-19, mRNA, LNP-S, PF, 100 mcg/0.5mL dose or 50 mcg/0.25mL dose 1 completed Haleigh Monfette null, PA - [facility] 11/03/2022 11:31:31 COVID-19, mRNA, LNP-S, PF, 100 mcg/0.5mL dose or 50 mcg/0.25mL dose 2 completed Haleigh Monfette null, PA - [facility] 11/03/2022 11:31:31 COVID-19, mRNA, LNP-S, PF, 100 mcg/0.5mL dose or 50 mcg/0.25mL dose 1 completed Haleigh Monfette null, PA - [facility] 11/03/2022 11:31:31 pneumococcal polysaccharide PPV23 0 completed Haleigh Monfette null, PA - [facility] 11/03/2022 11:31:31 Influenza, high-dose, trivalent, PF 9 completed Haleigh Monfette null, PA - [facility] 11/03/2022 11:31:31 Influenza, high-dose, trivalent, PF 8 completed [facility] Evans - [facility] 11/03/2022 11:31:31 Past Encounters Encounter ID Performer Location Encounter Start Date Encounter Closed Date Diagnosis/Indication Diagnosis SNOMED-CT Code Diagnosis ICD10 Code Diagnosis Note [id number] [address] [id number] 04/10/2017 10:46:16 04/10/2017 11:33:17 [id number] Reymundo Chu DO [address] [address] 11/03/2022 10:19:47 11/03/2022 12:16:04 Acute conjunctivitis 05100790 H10.31 Rx eye dropsDiscu ssed proper hygiene, eye cleaning from inner eye, out with fresh clean clothhand washing and recommend changing bed sheets daily while symptomati c. NO CONTACTS in affected eye Patient advised to follow up as needed for worsening symptoms or no improvemen t. Upper resp iratory infection 71075741 J06.9 Viral infectionR ecommend plenty of fluidsTyle nol, Motrin for pain/fever Humidifier Nasal saline sprayNo need for antibiotic may last up to 2 weeksCall or RTC if worsening cough, SOB, high fever, rash, n/v/d and unable to hydrate Health Concerns Section Related Observation LastModified by Organization Detai ls LastModified Time None Recorded Concern Status LastModified by Organization Details LastModified Time None Recorded Advance Directives Directive None Recorded Payers Encounter Date Sequence Insurance Name Policy Number Policy Vega Covered Member ID Vega Member ID Guarantor Name 04/10/2017 1 [facility] [id number] Jasmin Smith [id number] Jasmin Smith 11/03/2022 1 [place] [employer] Jasmin Macias Luis [id number] Jasmin Smith 11/03/2022 2 [place] [id number] Jasmin Smith [id number] Jasmin Smith Notes Date Note Type Note Provider Name and Address Organization Details Recorded Time 11/03/2022 text/html CoughReported bypatient.Notes:72 yo female c/o productive cough, chest congestion, sore throat x1 week.Today woke up with eye redness, itchy, and crusty.Took home covid test and was negative, declines rapid covid test No feverNo chillsNo difficulty breathing or respiratory distressNo CPNo ear painNo Abdominal painNo nauseaNo vomitingNp diarrheaNo myalgiaNo fatigueNo rashNo HANo dizzinessNo recent travelNo known sick contacts c/o eye redness+ dischargeno painno FB in eyeno vision changeno blurred visionno eye traumano rash+ contactsno OTC medsno f/c/n/v Reymundo Chu, DO [address] [place], [place], [address], [place] - [facility] 11/03/2022 12:14:58 OBGyn Episode No OBEpisode recorded.
== END 2024-10-12 14:34 | disposition home or self-care (01) ==
PROVIDERS: PCP Internal Medicine; Visit Provider Internal Medicine Cardiovascular Disease
DX: I48.92 Unspecified atrial flutter (principal)
CPT/HCPCS: 93010; 99214

== ENCOUNTER → 2024-10-12 13:51 | Outpatient (BNVA) | payer MEDICARE, SELFPAY | PROVIDERS: PCP Internal Medicine; Visit Provider Internal Medicine Cardiovascular Disease | DX: I48.92 Unspecified atrial flutter (principal); R94.31 Abnormal electrocardiogram [ECG] [EKG] | CPT/HCPCS: 93005; 99212 ==

== ENCOUNTER 2025-02-22 10:55 | Emergency (ER) | payer MEDICARE, SELFPAY ==
--- NOTE | 2025-02-22 10:56 | ECG_ITS ---
Test Reason : afib Blood Pressure : */* mmHG Vent. Rate : 121 BPM Atrial Rate : 242 BPM P-R Int : * ms QRS Dur : 74 ms QT Int : 336 ms P-R-T Axes : 94 -33 13 degrees QTcB Int : 477 ms Atrial flutter with 2:1 A-V conduction Left axis deviation Inferior infarct , age undetermined Cannot rule out Anterior infarct Abnormal ECG When compared with ECG of 03-Feb-2024 01:33, Rhythm change Referred By: Generic ED Physician Electronically Signed By: INGRID CHEN
--- NOTE | 2025-02-22 11:08 | ED_ITS ---
HPI - General Adult General Chief complaint: Arrhythmia/Palpitations Stated complaint: afib rapid heart beat Time Seen by Provider: 02/22/25 11:08 Source: patient Mode of arrival: wheelchair Limitations: no limitations History of Present Illness ED Provider: Reyna Swanson PA-C HPI narrative: Patient is a 74 year old female with past medical history of atrial fibrillation/flutter s/p cardioversion 04/2023 on Multaq + Eliquis (follows with Dr. Mae) and essential hypertension who presents to the ER on 02/22 with chief complaint of fast heart rate and fluttering sensation in her chest and throat this morning. She also felt chest heaviness for a few minutes while experiencing these symptoms. Her symptoms have since resolved since arriving to the ER. She is on Eliquis and Multaq daily, which she has taken this morning. She denies missing any medication doses recently. She has taken no other medications today. She denies dizziness, shortness of breath, nausea, vomiting, or any other symptoms. She has had an episode of atrial flutter previously, last episode being 01/2024. She endorses having some wine last night; she states she has wine a few times weekly regularly. Relieving factors: none Exacerbating factors: none Related Data Home Medications ?Medication ?Instructions ?Recorded ?Confirmed cholecalciferol (vitamin D3) 50 50 mcg PO DAILY 10/12/24 mcg (2,000 unit) capsule cyanocobalamin (vitamin B-12) 250 500 mcg PO DAILY 10/12/24 mcg tablet gabapentin 100 mg capsule 100 mg PO DAILY 10/12/2411/03 gabapentin 300 mg capsule 300 mg PO BEDTIME 10/12/24 0 10/12/24 Previous Rx's ?Medication ?Instructions ?Recorded apixaban 5 mg tablet 5 mg PO BID #180 tabs dronedarone 400 mg tablet (Multaq) 400 mg PO BID #180 tabs 10/19/24 diltiazem HCl 120 mg 120 mg PO DAILY #30 caps capsule,extended release 24 hr (Cartia XT) Allergies Allergy/AdvReac Type Severity Reaction Status Date / Time No Known Allergies Allergy Verified 02/22/25 11:13 Review of Systems 2 Constitutional: Constitutional: Reports no additional constitutional complaints Eyes: Eyes: Reports no additional eye complaints and Denies loss of vision ENT: Denies dizziness Cardiovascular: Cardiovascular: Reports as per HPI, Reports rapid heart rate, Denies lightheadedness, Denies Loss of Consciousness and Denies dyspnea Respiratory: Respiratory: Reports no additional respiratory complaints and Denies dyspnea Gastrointestinal: Gastrointestinal: Reports no additional gastrointestinal complaints, Denies abdominal pain, Denies melena, Denies hematochezia, Denies change in bowel habits and Denies change in stool character Genitourinary: Genitourinary: Denies hematuria, Denies urinary frequency, Denies dysuria, Denies urinary incontinence, Denies urinary hesitancy and Denies urinary urgency Musculoskeletal: Musculoskeletal: Reports no additional musculoskeletal complaints, Denies numbness and Denies tingling Neurologic: Denies dizziness, Denies loss of vision, Denies numbness and Denies tingling Psychiatric: Psychiatric: Reports no additional psychiatric complaints Endocrine: Endocrine: Reports no additional endocrine complaints Hematologic/Lymphatic: Hematologic/Lymphatic: Reports no additional hematologic/lymphatic complaints Allergic/Immunologic: Allergic/Immunologic: Reports no additional allergic/immunologic complaints [facility] Past Medical History Attestation statement: The following information was validated with the patient. Source: old records reviewed and nursing notes reviewed Medical History Atrial flutter Surgical History No pertinent past surgical history Family History Family History Mother Lung cancer Father Aortic aneurysm Social History Social History Household Members: Spouse Housing: House Do you presently have visiting nurse or other home services: No Alcohol intake: current Alcohol intake frequency: a few times a week Alcohol type: wine Patient Tobacco Use Status: Never used Tobacco Smoked in Last 30 Days: No Use of substances other than those prescribed or required for medical reasons: No Substance Use Type: Other Advance Directives: Yes Advance Directives Information Provided: Yes Advance Directives on File: No Do you have a plan to hurt others: No Plan service: No Physical Exam ED Vital Signs: Vital Signs - 24 hr 02/22/25 11:13 02/22/25 11:18 02/22/25 11:43 Temperature 98.1 F 98.1 F Pulse Rate 120 H 120 H 66 Respiratory Rate 14 14 Blood Pressure 161/100 H 146/74 H Pulse Oximetry 99 99 Oxygen Delivery Method Room Air Room Air BMI result Body Mass Index 20.5 Const General: cooperative, no acute distress, alert and awake Nutritional Appearance: well nourished Orientation/consciousness: patient oriented x3 HENMT Head: Yes normal to inspection and Yes atraumatic Ears: hearing grossly normal bilaterally and external ears normal General nose exam: Normal external nose present, no nasal discharge noted and no epistaxis Face and sinus: Yes normal facial exam, No abrasion and No laceration Mouth: Normal oral and palatal mucosa present, no drooling and no muffled voice Eyes General: appearance normal, both eyes and all related structures Periorbital: periorbital findings normal Eyelids: Yes eyelids normal Conjunctivae: conjunctivae normal Pupils: Equal, round and reactive pupils present EOM: EOMs intact bilaterally Neck Neck: Yes normal visual inspection, Yes full ROM and Yes no lymphadenopathy Resp Effort & Inspection: normal respiratory effort and able to speak in complete sentences Cardio Rate: tachycardic Rhythm: abnormal rhythm irregularly irregular Neuro General: patient oriented x3, moves all extremities and CN's II-XI intact bilaterally Cranial nerves: Yes Equal, round and reactive pupils present Cognition (Neuro): normal cognition Extrem General: Yes normal to inspection, Yes full ROM and Yes capillary refill normal Psych Appearance: grossly normal Mental Status: mental status grossly normal Affect: normal affect Attitude: cooperative Thought process: Normal thought process present Thought content: Normal thought content present Insight: Good insight present (Psych) Medications Administered Discontinued Medications Generic Name Dose Route Start Last Admin Trade Name Freq PRN Reason Stop Dose Admin Diltiazem HCl 10 mg 02/22/25 11:23 02/22/25 11:43 Diltiazem Hcl 50 Mg/10 Ml Vial IVPUSH 02/22/25 11:24 Not Given NOW STA Medical Decision Making Medical Decision Making MDM Narrative: Patient is a 74 year old assigned female at with a history of atrial fibrillation/flutter s/p cardioversion 04/2023 on Multaq + Eliquis (follows with Dr. Mae) and essential hypertension presenting to the emergency department today with palpitations. Patient's physical exam initially showed atrial flutter with RVR however, the patient self converted while in the department to sinus rhythm with a rate in the 60s. Patient's blood work showed an elevated BNP of 453 however, there is no clinical evidence of heart failure or fluid overload. Patient's initial EKG showed atrial flutter with RVR however, after self conversion, her repeat EKG showed normal sinus rhythm. Patient remained asymptomatic. I spoke with the chemist internship dictaphone mechanic, Dr. Desai, who recommended adding Diltiazem CD 120mg daily. I explained my physical exam findings as well as all test results to the patient. I answered all questions asked by the patient. I stressed the importance of the patient taking her medication as directed (either prescribed or as the over the counter packaging recommends). I stressed the importance of the patient following up with her cardiology team and her primary care provider. I stressed the importance of the patient returning to the emergency department immediately if her symptoms were to worsen or if she were to develop any dizziness, shortness of breath, difficulty breathing, chest pain, blurry vision, loss of vision, nausea, vomiting, abdominal pain, fever, chills, back pain, or any other complaints. Patient verbalized agreement and understanding with this treatment plan and discharge. Differential Diagnosis Differential Diagnoses: The differential diagnosis associated with the presentation includes Atrial flutter with rapid ventricular response Atrial fib with rapid ventricular response Palpitations Admission/Observation Consideration of admission/observation: Escalation of care including admission/observation considered Patient would have been admitted to the hospital had her work up had any findings where hospital admission was appropriate and her clinical presentation warranted hospital admission. Consult Healthcare Provider Management of the patient was discussed with: Railroad Construction Director (I spoke with the covering chemist internship as noted in the MDM Rationale portion of this note. ) Lab Data [facility] Lab Attestation statement: I reviewed the patient's lab results. My interpretation of these results are in the MDM Rationale portion of this note. 02/22/25 11:33 02/22/25 11:33 Labs: Lab Results 02/22/25 Range/Units 11:33 WBC 6.9 (4.8-10.8) X10*3/uL RBC 4.70 (4.20-5.50) X10*6/uL Hgb 14.9 (12.0-16.0) g/dl Hct 44.3 (37.0-47.0) % MCV 94.3 (80.0-98.0) fL MCH 31.7 (27.0-33.0) pg MCHC 33.6 (31.0-35.0) g/dl RDW 13.1 (11.0-16.0) % Plt Count 179 (160-400) X10*3/uL MPV 10.4 (9.4-12.3) fL Immature Gran % (Auto) 0.3 (0.0-0.4) % Neut % (Auto) 73.3 H (45-73) % Lymph % (Auto) 18.8 L (20-40) % [place] % (Auto) 6.1 (2-11) % Eos % (Auto) 0.6 (0-4) % Baso % (Auto) 0.9 (0-2) % Lymph # (Auto) 1.3 (1.2-4.9) X10*3/uL [place] # (Auto) 0.4 (0.1-1.2) X10*3/uL Eos # (Auto) 0.0 (0.0-0.4) X10*3/uL Baso # (Auto) 0.1 (0.0-0.2) X10*3/uL Abs Immat Gran (auto) 0.02 (0.00-0.03) X10*3/uL Absolute Neuts (auto) 5.1 (2.0-8.3) x10*3/uL Absolute Nucleated RBC 0.000 (0.0-0.012) X10*3/uL Nucleated RBC % (auto) 0.0 (0.0-0.2) /100WBC PT 17.1 H (10.9-12.4) SEC INR 1.5 H (0.9-1.1) Sodium 139 (135-145) mmol/L Potassium 4.3 D (3.3-5.1) mmol/L Chloride 106 (96-108) mmol/L Carbon Dioxide 25 (22-29) mmol/L Anion Gap 12 (12-20) BUN 12 (9-16) mg/dL Creatinine 0.60 (0.5-1.4) mg/dL Estim Creat Clear Calc 81.9 Estimated GFR > 60 Random Glucose 128 H (60-115) mg/dL Calcium 9.8 D (8.4-10.2) mg/dL Magnesium 2.1 (1.6-2.6) mg/dL Total Bilirubin 0.5 (0.0-1.0) mg/dL AST 32 H (5-31) U/L ALT 22 (0-31) U/L Alkaline Phosphatase 47 (39-117) U/L Troponin I High Sens 5.3 (<3.5-17.0) ng/L B-Natriuretic Peptide 453 H (<100) pg/mL Total Protein 6.9 (6.5-8.0) g/dL Albumin 4.6 (3.5-5.0) g/dL Independent Interpretation I performed an independent interpretation of an: EKG Interpretation: I independently interpreted these EKGs and am in agreement with the below findings: L Vent. Rate: 121 BPM Atrial Rate: 242 BPM P-R Int: * ms QRS Dur: 74 ms QT Int: 336 ms P-R-T Axes: 94 -33 13 degrees QTcB Int: 477 ms Atrial flutter with 2:1 A-V conduction Left axis deviation Inferior infarct, age undetermined Cannot rule out Anterior infarct When compared with ECG of 03-Feb-2024 01:33, Significant changes have occurred DD/ 1101 Vent. Rate: 64 BPM Atrial Rate: 64 BPM P-R Int: 176 ms QRS Dur: 86 ms QT Int: 432 ms P-R-T Axes: 18 -50 47 degrees QTcB Int: 445 ms Sinus rhythm with Premature supraventricular complexes Left anterior fascicular block Cannot rule out Inferior infarct (cited on or before 02-May-2020) Cannot rule out Anterior infarct (cited on or before 02-May-2020) When compared with ECG of 22-Feb-2025 11:01, Sinus rhythm has replaced Atrial flutter Vent. rate has decreased by [address] no longer depressed in Inferior leads DD/ 1209 Critical Care Time Critical Care Time Critical Care Time: Yes Total Critical Care Time: 32 Attestation: I spent 32 minutes of Critical Care Time with this patient. This does not include time spent on separately reported billable procedures. Discharge Plan Discharge Clinical Impression: Atrial flutter with rapid ventricular response Patient Disposition: Home, Self-Care Instructions: Atrial Flutter (DC) Additional Instructions: Your work up today was reassuring. You self-converted from atrial flutter to sinus rhythm. I spoke with the covering chemist internship dictaphone mechanic to day and he recommended adding Diltiazem 120mg Daily. Follow up with your cardiology team and primary care provider. Return to the emergency department immediately if your symptoms worsen or if you develop any numbness, tingling, dizziness, shortness of breath, difficulty breathing, chest pain, blurry vision, loss of vision, nausea, vomiting, abdominal pain, fever, chills, back pain, or any other complaints. Please see the information below about our Patient Portal. If you are not yet enrolled in the [facility] Patient Portal, you will receive an enrollment email invitation following your visit to any [facility] setting. You may also self-enroll in the Patient Portal by visiting our website: [email or web address] The following information is required to access the Patient Portal: - Your [facility] Medical Record Number - Your personal home email address (must match what is in your electronic medical record, Registration staff can assist with this) - Name - Date of Capabilities of the Patient Portal: - Message some providers - View upcoming appointments - Access your health summary, medical history, and visit history - View current conditions and allergies - View procedure and lab results - View your medications, including guidelines, side effects, and precautions - Complete pre-appointment questionnaires requested by your provider - Ready summary reports of your office visits and procedures To access the Patient Portal Mobile [employer], follow these directions: - Search [facility] in the [employer] Store or Google Play Store - Download the [place] - Search for [facility] - Enter your login/password Prescriptions: New diltiazem HCl [Cartia XT] 120 mg capsule,extended release 24hr 120 mg PO DAILY Qty: 30 0RF No Action apixaban 5 mg tablet 5 mg PO BID Qty: 180 3RF Multaq 400 mg tablet 400 mg PO BID Qty: 180 2RF cyanocobalamin (vitamin B-12) 250 mcg Tablet 500 mcg PO DAILY cholecalciferol (vitamin D3) 50 mcg (2,000 unit) capsule 50 mcg PO DAILY gabapentin 100 mg capsule 100 mg PO DAILY gabapentin 300 mg capsule 300 mg PO BEDTIME Referrals: [facility] [Provider Group] Referral Note: Follow up with your cardiology team. Wilbert Haley PA-C [Primary Care Provider, Internal Medicine] Print Language: Fijian
[2025-02-22 11:13] VITALS: PULSE 120; RESP 14; TEMP 36.7; O2SAT 99; BMI 20.5
[2025-02-22 11:18] VITALS: BP 161/100; PULSE 120; RESP 14; TEMP 36.7; O2SAT 99
--- NOTE | 2025-02-22 11:35 | PC.NURSE ---
Patient presents to ED after wakingup this morning c/o palpitations and rapid heartbeat. Patient also had chest heaviness which has resolved without medications. Patient on eliquis and multaq as prescribed by cardiologoist. Denies pain and SOB. Denies light headedness, dizziness, n/v BP 161/100 patient on shelter monitor afib RVR 118. Blood collected/sent. IV 20G in left AC. Provider in to see patient. Plan of care on going
[2025-02-22 11:42] LABS: MANUAL DIFF FLAG NO
--- NOTE | 2025-02-22 11:42 | ECG_ITS ---
Test Reason : AFIB Blood Pressure : */* mmHG Vent. Rate : 64 BPM Atrial Rate : 64 BPM P-R Int : 176 ms QRS Dur : 86 ms QT Int : 432 ms P-R-T Axes : 18 -50 47 degrees QTcB Int : 445 ms Sinus rhythm with Premature supraventricular complexes Left anterior fascicular block Cannot rule out Inferior infarct (cited on or before 02-May-2020) Cannot rule out Anterior infarct (cited on or before 02-May-2020) Abnormal ECG When compared with ECG of 22-Feb-2025 11:01, Sinus rhythm has replaced Atrial flutter Vent. rate has decreased by 57 bpm Referred By: Reyna Swanson Electronically Signed By: INGRID CHEN
[2025-02-22 11:43] VITALS: BP 146/74; PULSE 66
--- NOTE | 2025-02-22 11:44 | PC.NURSE ---
Patient able to self convert, 68 bpm. Notified provider cardizem held at this time. Patient to receive EKG
[2025-02-22 11:46] LABS: Hematocrit 44.3 % (37.0-47.0); Hemoglobin 14.9 g/dl (12.0-16.0); Imm Gran Abs Auto 0.02 X10*3/uL (0.00-0.03); Imm Gran Pct Auto 0.3 % (0.0-0.4); Lymphocytes Absolute Auto 1.3 X10*3/uL (1.2-4.9); Mean Corpuscular HGB Conc 33.6 g/dl (31.0-35.0); Mean Corpuscular Hemoglobin 31.7 pg (27.0-33.0); Mean Corpuscular Volume 94.3 fL (80.0-98.0); NRBC Abs Auto 0.000 X10*3/uL (0.0-0.012); NRBC Pct Auto 0.0 /100WBC (0.0-0.2); Platelet Count 179 X10*3/uL (160-400); Red Blood Count 4.70 X10*6/uL (4.20-5.50); White Blood Count 6.9 X10*3/uL (4.8-10.8)
[2025-02-22 11:52] LABS: INTERNATIONAL NORM RATIO 1.5 (0.9-1.1); Prothrombin Time 17.1 SEC (10.9-12.4)
[2025-02-22 12:03] LABS: Alanine Aminotransferase 22 U/L (0-31); Albumin Level 4.6 g/dL (3.5-5.0); Alkaline Phosphatase 47 U/L (39-117); Anion Gap 12 (12-20); Aspartate Amino Transferase 32 U/L (5-31); Blood Urea Nitrogen 12 mg/dL (9-16); Calcium 9.8 mg/dL (8.4-10.2); Carbon Dioxide 25 mmol/L (22-29); Chloride 106 mmol/L (96-108); Creatinine Clr Calc Pharmacy 81.9; Estimated Glomerular Filt Rate > 60; Magnesium 2.1 mg/dL (1.6-2.6); Potassium 4.3 mmol/L (3.3-5.1); Sodium 139 mmol/L (135-145); Total Protein 6.9 g/dL (6.5-8.0)
[2025-02-22 12:06] LABS: B Type Natriuretic Peptide 453 pg/mL (<100); Troponin-I High Sensitivity 5.3 ng/L (<3.5-17.0)
[2025-02-22 12:34] VITALS: BP 131/75; PULSE 66; RESP 14; TEMP 36.8; O2SAT 96
--- OUTSIDE RECORDS SUMMARY | 2025-02-22 12:50 | XMS_ITS | Data Portability ---
Author Organization [facility] Address [address] [place] [address] Care Team Providers Care Wire Frame Lampshade Maker Name Role Phone GT SINGH Primary Care Provider Assessment No assessment recorded. Plan of Treatment Reminders Order Date Submit Date Provider Last Modified By Organization Details Last Modified Time Details Appointments None recorded. Lab None recorded. Referral None recorded. Procedures None recorded. Surgeries None recorded. Imaging None recorded. Medication Orders ofloxacin 0.3 % eye drops 2022 023 [id number], [address] [place], [address], 12:13:28 Patient TargetsNo targets recorded. Patient Instructions Encounter Date Encounter Id Patient Instructions Last Modified By Organization Details Last Modified Time 11/03/2022 [id number] pinkeye: care instructions Not available 11/03/2022 12:13:31 cough: care instructions Not available 11/03/2022 12:13:20 Reason for Referral None Reported. Problems Name Problem SNOMED Code Status Onset Date Resolution Date Notes Provider Name and Address Organization Details Recorded Time Atrial fibrillation 44220735 Active 2022 Haleigh gold PA - [facility] 3 11:32:06 Hypertensive disorder 75785740 Active 2022 Haleigh gold PA - [facility] 3 11:32:13 Celiac disease 831212413 Active 2022 Haleigh gold PA - [facility] 3 11:32:26 Problem Notes None recorded. Medical Equipment [...] height Body mass index (BMI) Body weight Oxygen saturation Oxygen saturation in Arterial blood by Pulse oximetry Heart rate Respiratory rate Body temperature Systolic And Diastolic Provider Name and Address Organization Details Last Updated DateTime 3 172.72 cm 20.1 kg/m2 75062.1 9 g 98 % 98 % 84 /min 18 /min 98.1 [degF] 132/84 mm[Hg] Haleigh [facility] 11:35:19 Social History Question Answer Notes LastModified by [employer] Details LastModified Time Tobacco Smoking Status Never Smoker [facility] 11/03/2022 11:33:35 Have You Recently Traveled Abroad? No Information not available 11/03/2022 Sex: Unknown Functional Status Question Answer Note LastModified by [employer] Details LastModified Time How many times per week do you consume alcohol? 5-7 times per week Information not available 11/03/2022 Do you use any illicit or recreational drugs? No Information not available 11/03/2022 Do you or have you ever used any other forms of tobacco or nicotine? No Information not available 11/03/2022 What is your level of alcohol consumption? Occasional Information not available 11/03/2022 Mental Status None recorded. Family History Relationship [...] or 50 mcg/0.25mL dose 1 completed Haleigh Castanonfette null, PA - [facility] 11/03/2022 11:31:31 COVID-19, mRNA, LNP-S, PF, 100 mcg/0.5mL dose or 50 mcg/0.25mL dose 1 completed Haliegh Monfette null, PA - [facility] 11/03/2022 11:31:31 COVID-19, mRNA, LNP-S, PF, 100 mcg/0.5mL dose or 50 mcg/0.25mL dose 2 completed Haleigh Castanonfette null, PA - [facility] 11/03/2022 11:31:31 COVID-19, mRNA, LNP-S, PF, 100 mcg/0.5mL dose or 50 mcg/0.25mL dose 1 completed Haleigh Castanonfette null, PA - [facility] 11/03/2022 11:31:31 pneumococcal polysaccharide PPV23 0 completed Haleigh Castanonfette null, PA - [facility] 11/03/2022 11:31:31 Influenza, high-dose, trivalent, PF 9 completed Haleigh Castanonfette null, PA - [facility] 11/03/2022 11:31:31 Influenza, high-dose, trivalent, PF 8 completed [facility] - [facility] 11/03/2022 11:31:31 Past Encounters Encounter ID Performer Location Encounter Start Date Encounter Closed Date Diagnosis/Indication Diagnosis SNOMED-CT Code Diagnosis ICD10 Code Diagnosis Note [id number] [facility] [address] [place] [address] 04/10/2017 10:46:16 04/10/2017 11:33:17 [id number] [facility] [address] [place] [address] 11/03/2022 10:19:47 11/03/2022 12:16:04 Acute conjunctivitis 39359224 H10.31 Rx eye dropsDiscu ssed proper hygiene, eye cleaning from inner eye, out with fresh clean clothhand washing and recommend changing bed sheets daily while symptomati c. NO CONTACTS in affected eye Patient advised to follow up as needed for worsening symptoms or no improvemen t. Upper resp iratory infection 30937013 J06.9 Viral infectionR ecommend plenty of fluidsTyle [...] Recorded Advance Directives Directive None Recorded Payers Insurance Date Sequence Insurance Name Policy Number Policy Vega Covered Member ID Vega Member ID Guarantor Name 11/03/2022 1 [employer] [id number] Jasmin Smith [id number] Jasmin Smith 11/05/2022 2 [facility] [id number] Jasmin Smith [id number] Jasmin Smith 11/03/2022 1 [place] Jasmin Smith [id number] Jasmin Smith 11/05/2022 2 [place] [id number] Jasmin Macias Luis [id number] Jasmin Smith Notes Date Note Type [...] f/c/n/v Reymundo Chu, DO [address] [place], [address], [place] - [facility] 11/03/2022 12:14:58 OBGyn Episode No OBEpisode recorded.
== END 2025-02-22 12:48 | disposition home or self-care (01) ==
PROVIDERS: Physician Assistant Medical; Emergency Provider Emergency Medicine; PCP Physician Assistant Surgical
DX: I48.20 Chronic atrial fibrillation, unspecified (principal); I10 Essential (primary) hypertension; Z79.01 Long term (current) use of anticoagulants; Z79.899 Other long term (current) drug therapy; Z98.890 Other specified postprocedural states
CPT/HCPCS: 36415; 80053; 83735; 83880; 84484; 85025; 85610; 93005; 99285; 99291

== ENCOUNTER → 2025-02-22 10:56 | Outpatient (BNV) | payer MEDICARE, SELFPAY | PROVIDERS: Emergency Provider Emergency Medicine; PCP Physician Assistant Surgical; Visit Provider Internal Medicine | DX: I48.3 Typical atrial flutter (principal); I49.1 Atrial premature depolarization; I44.4 Left anterior fascicular block | CPT/HCPCS: 93010 ==

== ENCOUNTER 2025-04-19 08:38 | Outpatient (AMB) | payer MEDICARE, SELFPAY ==
[2025-04-19 08:41] VITALS: BP 130/82; PULSE 69; BMI 19.3
--- NOTE | 2025-04-19 08:41 | MHC.OFFVIS ---
Vital Signs 04/19/25 08:41 Height 5 ft 8 in Weight 126 lb 15.78 oz BMI 19.3 BP 130/82 Blood Pressure Location Lt brachial Position Sitting Pulse 69 Pulse Source Monitor Intake Visit Reasons: 6 mth fu/ ed fu/ KM pt Cat Driver Required: No Allergies No Known Allergies Allergy (Verified 04/19/25 08:43) Medication List - Last Reconciled 04/19/25 by Liana Baez NP-C apixaban 5 mg PO BID cholecalciferol (vitamin D3) 50 mcg PO DAILY cyanocobalamin (vitamin B-12) 500 mcg PO DAILY dronedarone (Multaq) 400 mg PO BID HPI HPI 6 mth fu/ ed fu/ KM pt: Details: Jasmin is a 74-year-old female with past medical history of hypertension, atrial flutter suppressed with Multaq who was in the emergency room in February with an episode of symptomatic atrial flutter with RVR. She converted on her own. Diltiazem was recommended however she did not start taking it. She now presents for follow-up. Today she reports she has been doing well since that time without any recurrent atrial flutter episodes. She tells me when she has atrial flutter she feels chest heaviness, fluttering in her epigastric area and neck. She has not had these symptoms in the last several weeks. She has no chest discomfort at rest or with activity. No shortness of breath, PND, orthopnea or edema. No lightheadedness, presyncope, syncope. She walks 1 mi per day for exercise. No bleeding issues with Elijannais. She is interested in seeing Dr. Alicia rivera for possible AFib ablation. [facility] Medical History Atrial flutter Surgical History No pertinent past surgical history Family History Mother Lung cancer Father Aortic aneurysm Social History Household Members: Spouse Housing: House Do you presently have visiting nurse or other home services: No Alcohol intake: current Alcohol intake frequency: a few times a week Alcohol type: wine Patient Tobacco Use Status: Never used Tobacco Substance Use Type: Other service: No Review of Systems Const All systems reviewed & are unremarkable except as noted in HPI and below ENT Denies dizziness Card Denies chest pain, Denies chest pain at rest, Denies chest pain with activity, Denies rapid heart rate, Denies pedal edema, Denies edema, Denies leg edema, Denies lightheadedness, Denies palpitations, Denies dyspnea, Denies dyspnea on exertion and Denies orthopnea Resp Denies cough, Denies dyspnea and Denies dyspnea on exertion GI Denies hematochezia and Denies change in stool character Musc Denies abnormal gait, Denies limited range of motion, Denies muscle cramps, Denies muscle weakness, Denies numbness, Denies radiating pain into limb, Denies stiffness and Denies tingling Neuro Denies abnormal gait, Denies dizziness, Denies numbness and Denies tingling Endo Denies palpitations Physical Exam Vital Signs: Last Vital Signs Pulse 69 04/19/25 08:41 BP 130/82 04/19/25 08:41 BMI result Body Mass Index 19.3 Const General: cooperative, healthy appearing, comfortable and no acute distress Orientation/consciousness: patient oriented x3 Neck Neck: Yes normal visual inspection Resp Effort & Inspection: normal respiratory effort Auscultation: clear to auscultation bilaterally, no crackles, no rales, no rhonchi and no wheezes Cardio Jugular venous distension: no JVD Rate: regular rate Rhythm: regular rhythm Heart sounds: S1 normal heart sound present, S2 normal heart sound present, no gallops, no murmurs and no rubs Peripheral pulses: Peripheral pulses 2+ throughout Neuro General: patient oriented x3 Extrem General: Yes normal to inspection, No no pedal edema and No calf tenderness Psych Appearance: grossly normal Mental Status: mental status grossly normal Speech and movement: Normal speech and movement present Office Procedures EKG Details: Today, read by me, normal sinus rhythm, low-voltage QRS, can not exclude prior anterior infarct, rate 69, QTC 452 milliseconds [id number], Complete Assessment & Plan Assessment & Plan (1) Atrial flutter: Code(s): I48.92 - Unspecified atrial flutter Category: Medical Qualifiers: Atrial flutter type: unspecified Qualified Code(s): I48.92 - Unspecified atrial flutter Plan: History of symptomatic atrial flutter. Mostly suppressed with Multaq 400 mg b.i.d.. Breakthrough episode 02/22/2025 with ER evaluation and converted on her own. She did not take diltiazem that was recommended. She is on Eliquis for anticoagulation. Last echo 05/17/2023 shows EF 67%, no regional wall motion abnormalities, both atria normal sizes. EKG done today showing normal sinus rhythm, can not exclude prior anterior infarct, rate 69. No med changes made at this time. Will refer to Dr. Vargas for EP at her request. Office EKG in 3 months. Cardiology follow-up with EKG in 6 months. (2) Essential hypertension: Code(s): I10 - Essential (primary) hypertension Category: Medical Plan: Blood pressure goal less than 130/80. Well controlled at this time. No med changes made. Plan Time spent on chart review, documentation, interviewed assessment Orders: Referrals Cardiac Electrophysiology Referral I48.92 - Unspecified atrial flutter Coding Level of Care Code Est Pt Level 4 (12773) Complex EM visit Add On G2211 Diagnoses Atrial flutter, unspecified type I48.92 Atrial flutter type: unspecified Essential hypertension I10 CPT Codes EKG - CPT: 99039-Yvqgyohorhnxjzwnd, Complete ([id number]) Time Spent (min) 32
--- OUTSIDE RECORDS SUMMARY | 2025-04-19 09:39 | XMS_ITS | Clinical Summary ---
Author Organization [facility] Address [address] [place] [id number] Phone Care Team Providers Care Canine Service Teacher Name Role Phone Albert Mae MD Unavailable [phone] Wilbert Haley PA-C Primary Care Provider Rolando Velázquez MD Unavailable Allergies No known active allergies Medications DRYSOL 20 % external solution Apply 20 Bottles topically daily. 5 09/08/19 18 Active cholecalciferol (VITAMIN D3) 2,000 unit capsule Take 2,000 Units by mouth daily. Active cyanocobalamin, vitamin B-12, (VITAMIN B-12 ORAL) Take 1 capsule by mouth daily. Active MULTAQ 400 mg tablet Take 1 tablet by mouth 2 (two) times a day. 02/03/20 24 Active ELIQUIS 5 mg tabletIndication s:Atrial fibrillation TAKE 1 TABLET BY MOUTH TWICE A DAY 60 tablet 11 08/10/20 24 Active gabapentin (NEURONTIN) 100 MG capsule TAKE 1 CAPSULE BY MOUTH TWICE A DAY AND 1-2 AT BEDTIME 08/10/20 24 Active LORazepam (ATIVAN) 0.5 MG tabletIndication s:Anxiety TAKE 1 TABLET BY MOUTH EVERY 8 HOURS NEEDED FOR ANXIETY. 20 tablet 03/24/20 25 Active LORazepam (ATIVAN) 0.5 MG tabletIndication s:Anxiety Take 1 tablet (0.5 mg total) by mouth every 8 (eight) hours as needed for anxiety. 20 tablet 1 05/15/20 24 025 Discontinued Active Problems Problem Noted Date Diagnosed Date Breast cancer screening by mammogram 10/07/2024 Osteopenia 10/07/2024 Routine general medical exam ination at a health care facility 09/02/2024 Assessment & Plan (09/02/2024 8:47 AM EST): In preparation of her upcoming annual physical I will obtain a CMP, TSH, fasting glucose, and lipid panel Neuropathy 09/03/2022 Assessment & Plan (09/02/2024 8:44 AM EST): Patient with a past medical history of peripheral neuropathy who has since been placed on gabapentin for treatment of her anxiety. She tells me that her peripheral neuropathy is much improved to being on the gabapentin which we will continue. Assessment & Plan (09/03/2022 5:42 AM EST): Check b12 level Generalized anxiety disorder 09/03/2022 Assessment & Plan (09/02/2024 8:46 AM EST): Patient follows with a therapist and has an appointment scheduled next week. She also was seen by psychiatrist who started her on gabapentin at 100 mg in the morning, 100 mg in the afternoon, and 400 mg at night. She tells me that this has improved her symptoms of anxiety. She has follow-up scheduled next week with the psychiatrist. Assessment & Plan (09/03/2022 5:43 AM EST): Ongoing despite non-pharmacologic management. Recommend consideration of buspirone. Will defer start until labs are back and we know how she is doing on losartan. Celiac disease 10/10/2017 Assessment & Plan (09/02/2024 8:46 AM EST): Patient with a history of celiac's disease who follows with [facility]. Patient states that she is not due for her EGD/colonoscopy until 2025. She does mention that she has been having some difficulty with some abdominal distention. She denies any history of diarrhea or abdominal pain. She mentions that she thought it was most likely due to dairy therefore has been cutting it out. She also mentions that she does consume walnuts which could also be a trigger. We talked about elimination diet to see if her symptoms improve. I have also asked her to reach out to GI as they may want to move up her EGD/colonoscopy. We also discussed an boat diesel motor mechanic however she would like to hold on this for now. -I will also obtain vitamin B12 and B1 labs due to her diet. Assessment & Plan (09/03/2022 5:42 AM EST): Continue GF diet Vitamin D deficiency, unspecified 10/10/2017 Atrial fibrillation Assessment & Plan (09/02/2024 8:43 AM EST): With a history of atrial fibrillation who is followed by [facility] cardiology. She was last seen at back in February 2024 with an upcoming appointment next week. She is maintained on Eliquis 5 mg p.o. twice daily and Multaq 400 mg p.o. twice daily. Assessment & Plan (02/11/2024 10:13 AM EDT): Paroxysmal A-fib. Patient with a history of A-fib status post cardioversion back in April 2023. Most recently went to the ER for palpitations and chest pressure found to be an A-fib. Patient was placed on diltiazem drip and converted to normal sinus rhythm. Patient was discontinued off home diltiazem and started on Multaq. -Continue Multaq 400 mg p.o. twice daily -Continue Eliquis 5 mg p.o. twice daily -has a follow up with Cardiology - at the end of February -patient advised to f/u if needed sooner than scheduled appt in Aug 2024 Assessment & Plan (09/03/2022 5:41 AM EST): Continue Eliquis Resolved Problems Problem Noted Date Diagnosed Date Resolved Date Essential hypertension 09/03/202209/02 Assessment & Plan (09/03/2022 5:41 AM EST): Begin losartan. Avoiding ACEi given history childhood asthma. Will check home BPs. Will have cardiology follow up appt in October as well. If any s/e or concerns will call office. Strain of left trapezius muscle 09/03/2022 09/02/2024 Assessment & Plan (09/03/2022 5:42 AM EST): Reviewed heat, gentle stretching Fatigue 10/10/2017 09/02/2024 IFG (impaired fasting glucose) 10/10/2017 09/02/2024 Assessment & Plan (09/03/2022 5:42 AM EST): Check a1c Joint pain 10/10/2017 09/02/2024 Osteopenia 10/10/2017 09/02/2024 Assessment & Plan (09/03/2022 5:42 AM EST): Continue regular, weight-bearing exercise. Continue vitamin D supplement Pure hypercholesterolemia 10/10/2017 Encounters Date Type Department Care Team Description 03/24/2025 Refill [facility] Internal Medicine [address] [place] [address] Wilbert Haley, PADarionC Medication Refill from Last 3 Months Immunizations Immunization Administration Dates Next Due INFLUENZA, SPLIT VIRUS, TRIV ALENT W/ PRESERVATIVE IM 06/18/2016,05/22/2012 Influenza High-Dose Quadriva lent Preservative Free IM 06/13/2022 Influenza High-Dose Trivalen t Preservative Free IM 06/03/2019,06/24/2018 Influenza Quadrivalent Adjuv anted Preservative Free IM 07/12/2023,06/26/2021,05/16/2020 Influenza Quadrivalent Prese rvative Free IM 06/03/2015 Influenza Trivalent Adjuvant ed Preservative free IM 05/27/2024 Influenza trivalent preserva tive free intradermal 05/29/2013 Influenza, Unspecified Formulation 08/08,04/20/2011,04/06/2010,05/25 Pneumococcal conjugate PCV13 10/10/2017 Pneumococcal conjugate PCV20 08/29/2023 Pneumococcal polysaccharide PPSV23 05/09/2020 Tdap 12/22/2012 Zoster live 01/15/2013 Zoster recombinant 07/29/2020 Family History Medical History Relation Comments Aortic aneurysm Father abdominal Atrial fibrillation Father Colon cancer Father Lung cancer Mother Bipolar disorder Son 1 Relation Status Comments Brother Alive Father Mother (Age 86) Sister 1 Alive Sister 2 Alive Sister 3 Alive Sister 4 Alive Son 1 Alive Son 2 Alive Social History Tobacco Use Types Packs/Day Years Used Date Smoking Tobacco: Never Smokeless Tobacco: Never Tobacco Cessation:Counseling Given: Not Answered Alcohol Use Standard Drinks/Week Comments Yes 2 (1 standard drink = 0.6 oz pur e alcohol) 1-2 drinks, 2-3 x week Child or Family Care Answer Date Record ed Do you have problems with on e of the following making it difficult for you to work, study, or receive health care? No 10/01/2024 Education Answer Date Recorded Are you interested in more education? Not on reina e 12/07/2022 Are you concerned about learning? Not on file 12/07/2022 No 12/07/2022 No 12/07/2022 Food Answer Date Recorded Within the past 6 months we worried whether our food would run out before we got money to buy more. Never True 10/01/2024 Within the past 6 months the food we bought just didn't last and we didn't have enough money to get more. Never True Residential Stability Answer Date Recor ded What is your housing situation today? I have loretta sing 10/01/2024 How many times have you move d in the past 12 months? Zero (I did not move) 10/01/2024 Paying for Meds Answer Date Recorded Do you have trouble paying for medicines? I nasim se not to answer 10/01/2024 Paying Utility Bills Answer Date Record ed Do you have trouble paying your heating or elect ricity bill? No 10/01/2024 Transportation Answer Date Recorded Has the lack of transportati on kept you from medical appointments or from getting medications? No 10/01/2024 Digital Access Answer Date Recorded No 10/01/2024 Yes 10/01/2024 Do you have reliable internet access at home? Ye s 10/01/2024 Do you have a device (e.g., phone, tablet, computer) with a working camera? Yes 10/01/2024 Intimate Partner Violence Answer Date R ecorded Denied Basic Needs Not on file 10/07/2024 In the past 12 months have y ou been in a relationship with a person who hurts, threatens, or tries to control you? No 10/07/2024 Worried food would run out Not on file 10/07 In the past 12 months have y ou been in a relationship with a person who hurts, threatens, or tries to control you? No 10/07/2024 Comments No Sex and Gender Information Value Date Recorded Sex Assigned at Not on file Legal Sex Female 4:36 PM EST Gender Identity Not on file Sexual Orientation Not on file Last Filed Vital Signs Vital Sign Reading Time Taken Comments Blood Pressure 140/74 10/07/2024 7:18 AM EST Pulse 71 10/07/2024 7:18 AM EST Temperature 36.4 C (97.6 F) 12/24/2023 9:32 AM EDT Respiratory Rate 18 10/07/2024 7:18 AM EST Oxygen Saturation 98% 10/07/2024 7:18 AM EST Inhaled Oxygen Concentration - - Weight 59.4 kg (131 lb) 10/07/2024 7:18 AM EST Height 171.5 cm (5' 7.52 ) 10/07/2024 7:18 AM ES T Body Mass Index 20.2 10/07/2024 7:18 AM EST Plan of Treatment Upcoming Encounters Date Type Department Care Team (Late st Contact Info) Description 10/11/2025 7:20 AM EST Office Visit [facility] [address] [place] [address] Wilbert Haley PA-C [address] [place] [address] Health Maintenance Due Date Last Done Comments COLOGUARD 1997 FIT TEST 1997 FOBT 1997 SIGMOIDOSCOPY 1997 VIRTUAL COLONOSCOPY 1997 ZOSTER VACCINES (3 of 3) 09/23/2020 07/29/2020, 06/0 01/2013 Adult Td,Tdap Booster 12/22/2022 12/22/2012 COVID-19 VACCINE ( season) 2024 12/13/2021, 06/26/2021, 10/24/2020, Additional history exists INFLUENZA VACCINE (#1) 2025 , 07/12/2023, 06/13/2022, Additional history exists FOLLOW UP BONE DENSITY TESTING 08/29/2025 08/29/2023, 10/12/2021, 01/22/2013 CREATININE LEVEL 09/02/2025 09/02/2024, , 08/19/2023, Additional history exists DEPRESSION SCREENING 10/07/2025 10/07/2024, 08/21/19 22 COLONOSCOPY 11/15/2025 11/16/2015 COLORECTAL CANCER SCREENING 11/15/2025 MAMMOGRAM 10/29/2026 10/29/2024, 09/13, 08/29/2023, Additional history exists RSV VACCINE (1 - 1-dose 75+ series) 2027 LIPID PANEL 09/02/2029 09/02/2024, 03/2024, 08/19/2023, Additional history exists HEPATITIS C SCREENING Completed 05/16/2020, 020 OSTEOPOROSIS SCREENING INITIAL (ONE-TIME) Completed 08/29/2023, 10/12/2021, 01/22/2013 PNEUMOCOCCAL VACCINES (50+ years) Completed 08/29/2023, 05/09/2020, 10/10/2017 SMOKING STATUS SCREENING (Once After 26 Yrs) Completed 10/07/2024 HEPATITIS A VACCINES Aged Out No long er eligible based on patient's age to complete this topic HIB VACCINES Aged Out No longer eligi ble based on patient's age to complete this topic MENINGOCOCCAL VACCINES (ACWY) Aged Out No longer eligible based on patient's age to complete this topic MENINGOCOCCAL VACCINES (B) Aged Out N o longer eligible based on patient's age to complete this topic Medical Devices Not on file Procedures Procedure Name Priority Date/Time Associated Diagnosis Comments HM MAMMOGRAPHY Routine 10/29/2024 10:05 AM EDT LIPID PANEL Routine 09/02/2024 9:10 AM EST Annual physical exam COMPREHENSIVE METABOLIC PANEL Routine 09/02/2024 9:10 AM EST Annual physical exam BD DXA SCREENING Routine 08/29/2023 10:0 5 AM EST Osteopenia, unspecified location OUTSIDE HEPATITIS C VIRUS SCREENING Routine 05/16/2020 from Last 3 Months or Most Recently Relevant to Health Maintenance Results * MAMMOGRAPHY FOR RESULT ENTRY ONLY (10/29/2024 10:05 AM EDT) us Historical Provider MD HEALTH MAINTENANCE Final Result * (ABNORMAL) Comprehensive metabolic panel (09/02/2024 9:10 AM EST) SODIUM 143 133 - 146 mmol/L [facility] POTASSIUM 5.1 3.3 - 5.1 mmol/L [facility] CHLORIDE 106 96 - 108 mmol/L [facility] CO2 27 21 - 35 mmol/L [facility] BUN 12 6 - 19 mg/dL [facility] CREATININE 0.60 0.5 - 1.5 mg/dL [facility] GLUCOSE 100(H) 70 - 99 mg/dL [facility] ALBUMIN 4.6 3.9 - 4.8 g/dL [facility] TOTAL PROTEIN 7.2 6.5 - 8.0 g/dL [facility] CALCIUM 9.6 8.4 - 10.3 mg/dL [facility] ALKALINE PHOSPHATASE 57 39 - 117 U/L [facility] TOTAL BILIRUBIN 0.6 0.0 - 1.2 mg/dL [facility] AST 29 0 - 37 U/L [facility] ALT 15 0 - 40 U/L [facility] GLOBULIN 2.6 1 - 4.8 g/dL [facility] EGFR 96 >59 mL/min/1.7 3m2 [facility] Comment:Estimated glomerular filtration rate calculated using the CKD-EPI refit equation. ANION GAP 15 10 - 20 mmol/L [facility] Blood 09/02/2024 9:10 AM EST 09/02/2024 9:12 AM EST Wilbert Haley PA-C LAB BLOOD ORDERABLES Final Re sult [address] [address] * (ABNORMAL) Lipid panel (09/02/2024 9:10 AM EST) HDL 103 mg/dL [facility] Comment: Interpretation <40 mg/dL: Low HDL cholesterol (major risk factor for CHD) Greater than or equal to 60 mg/dL: High HDL cholesterol ( negative risk factor for CHD) HDL - cholesterol is affected by a number of factors, e.g. smoking, excerise, hormones, sex and age. CHOLESTEROL 190 0 - 240 mg/dL [facility] TRIGLYCERIDES 40 30 - 160 mg/dL [facility] LDL 79 50 - 129 mg/dL [facility] Comment: LDL levels in terms of risk for coronary heart disease: <100 mg/dL: Optimal 100-129 mg/dL: Near or above optimal 130-159 mg/dL: Borderline high 160-189 mg/dL: High >190 mg/dL: Very High CARDIAC RISK RATIO 1.8(L) 3.3 - 4.4 [facility] Blood 09/02/2024 9:10 AM EST 09/02/2024 9:12 AM EST Wilbert Haley PA-C LAB BLOOD ORDERABLES Final Re [facility] Organization Address City/State/ZIP Co de Phone Number [address] [phone] * DXA Monitoring (10/12/2021) Anatomical Region Laterality Modality Bone Density Bone Density Antonietta Sifuentes CNP IMG BD BONE DENSITY DE XA Edited Result - Final * Outside Hepatitis C Virus Screening (05/16/2020) Hepatitis C Screening - External Neg Historical Provider LAB BLOOD ORDERABLES Lavonne l Result from Last 3 Months or Most Recently Relevant to Health Maintenance Insurance MEDICARE PART A & B [employer] MEDEX SUPPLEMENT MEDICARE PART A & B [employer] MEDEX SUPPLEMENT MEDICARE PART A & B [employer] MEDEX SUPPLEMENT MEDICARE PART A & B [employer] MEDEX SUPPLEMENT MEDICARE PART A & B [employer] MEDEX SUPPLEMENT MEDICARE PART A & B [employer] MEDEX SUPPLEMENT MEDICARE PART A & B [employer] CROSS MEDEX SUPPLEMENT MEDICARE PART A & B [employer] MEDEX SUPPLEMENT MEDICARE PART A & B [employer] MEDEX SUPPLEMENT Care Teams Canine Service Teacher Relationship Specialty Start Date End Date Wilbert Haley PA-C [address] [place] [address] [email or web address] PCP - General Physician Decorating Supervisor 02/04/24 [place] [address] [place] [address] [place] [address] Hospitalist 08/28/22 Rolando Velázquez MD [address] [place] [address] [email or web address] Insurance Assigned Provider 11/15/24 Additional Source Comments The information contained in this document represents components of the legal health record. It is not the complete legal health record.[facility]
== END 2025-04-19 09:20 | disposition home or self-care (01) ==
LOC: HO.HCS 08:39
PROVIDERS: PCP Physician Assistant Surgical; Visit Provider Nurse Practitioner Family
DX: I48.92 Unspecified atrial flutter (principal); I10 Essential (primary) hypertension
CPT/HCPCS: 93010; 99214; G2211

== ENCOUNTER → 2025-04-19 08:38 | Outpatient (BNVA) | payer MEDICARE, SELFPAY | PROVIDERS: PCP Physician Assistant Surgical; Visit Provider Nurse Practitioner Family | DX: I48.92 Unspecified atrial flutter (principal); I10 Essential (primary) hypertension | CPT/HCPCS: 93005; 99212 ==